=== PATIENT | female | born 1995 | race Caucasian/White ===

== ENCOUNTER 2019-12-30 14:45 | Emergency (ER) | payer OTHER, SELFPAY ==
[2019-12-30 16:49] VITALS: BP 147/86; PULSE 99; RESP 16; TEMP 37.4; O2SAT 100; BMI 17.2
[2019-12-30 23:30] LABS: MANUAL DIFF FLAG NO
[2019-12-30 23:37] LABS: Basophils Percent Auto 0.4 % (0-2); Eosinophils Percent Auto 0.3 % (0-4); Hematocrit 34.1 % (37-47); Hemoglobin 12.5 g/dl (12.0-16.0); Imm Gran Abs Auto 0.03 X10*3/uL (0.00-0.03); Imm Gran Pct Auto 0.4 % (0.0-0.4); Lymphocytes Absolute Auto 1.6 X10*3/uL (1.2-4.9); Lymphocytes Percent Auto 21.2 % (20-40); Mean Corpuscular HGB Conc 36.7 g/dl (31.0-35.0); Mean Corpuscular Hemoglobin 33.4 pg (27.0-33.0); Mean Corpuscular Volume 91.2 fL (80-98); Mean Platelet Volume 10.8 fL (9.4-12.3); Monocytes Percent Auto 13.2 % (2-11); Neutrophils Absolute Auto 4.8 X10*3/uL (2.0-8.3); Neutrophils Percent Auto 64.5 % (45-73); Platelet Count 264 X10*3/uL (160-400); Red Blood Count 3.74 X10*6/uL (4.20-5.50); Red Cell Distribution Width 11.1 % (11.0-16.0); White Blood Count 7.4 X10*3/uL (4.8-10.8)
[2019-12-31] LABS: Alanine Aminotransferase 27 U/L (0-31); Albumin Level 4.9 g/dL (3.5-5.0); Alkaline Phosphatase 44 U/L (39-117); Anion Gap 19 (12-20); Aspartate Amino Transferase 23 U/L (5-31); Bilirubin Direct 0.4 mg/dL (0.0-0.5); Bilirubin Total 0.8 mg/dL (0.0-1.0); Blood Urea Nitrogen 34 mg/dL (9-16); Calcium 9.5 mg/dL (8.4-10.2); Carbon Dioxide 19 mmol/L (22-29); Chloride 99 mmol/L (96-108); Creatinine Clr Calc Pharmacy 86.9; Estimated Glomerular Filt Rate > 60; Glucose Random 75 mg/dL (60-115); Lipase 14 U/L (8-78); Potassium 3.4 mmol/l (3.3-5.1); Sodium 134 mmol/L (135-145); Total Protein 7.5 g/dL (6.5-8.0)
[2019-12-31 01:04] LABS: Glucose Urine UA NEG (NEG); Leukocyte Esterase Urine NEG (NEG); Nitrite Urine NEG (NEG); Specific Gravity - Urine >= 1.030 (1.005-1.025); Urine Blood 2+ (NEG); Urine Ketones >=80 MG/DL (NEG); Urine Protein TRACE MG/DL (NEG-TRACE)
--- NOTE | 2019-12-31 01:10 | ED.NAVMDI ---
HPI - Nausea/Vomiting/Diarrhea General Chief complaint: Nausea/Vomiting/Diarrhea Stated complaint: Vomiting Time Seen by Provider: 12/31/19 01:03 Source: patient Mode of arrival: ambulatory Limitations: no limitations History of Present Illness HPI Narrative: This is a 24-year-old female without significant past medical history who presents with nausea and vomiting since and reports only being able to keep down small portions of food and minimal amount of water. She states that this has never happened before and is not associated with any travel, exposure to toddlers, sick contacts, fevers, chills, diarrhea, urinary pain /burning /frequency, and patient is currently menstruating. She states that the last time that she had this kind of nausea and vomiting was in March when she had a ruptured cyst. Patient was seen at [facility] and provided with antiemetics, but she states her symptoms have not improved. Related Data Previous Rx's Medication Instructions Recorded ondansetron HCl [Zofran] 4 mg PO Q6H #4 tab 12/31/19 Allergies Allergy/AdvReac Type Severity Reaction Status Date / Time Penicillins [PENICILLINS] Allergy Mild RASH Verified 12/31/19 01:24 Review of Systems Review of Systems: Pertinent positives and negatives as stated in HPI 10 point review systems is otherwise negative. [facility] Past Medical History Source: nursing notes reviewed Medical History No known health problems Social History Social History Alcohol intake: current Alcohol intake frequency: holidays/special occasions only Alcohol type: hard liquor Smoking Status: Never smoker Smoked in Last 30 Days: No Use of substances other than those prescribed or required for medical reasons: Yes Substance Use Type: Marijuana Substance Use Frequency: Occasionally Last Used Substance: Days (ago) Advance Directives: No Advance Directives Information Provided: No Physical Exam Vital Signs and I&O and Narrative: Vital Signs and I&O: Vital Signs Temp 98.5 F 12/31/19 01:17 Pulse 97 12/31/19 06:03 Resp 16 12/31/19 06:03 BP 121/69 12/31/19 06:03 Pulse Ox 97 12/31/19 06:03 Intake & Output 12/30/19 12/31/19 12/31/19 18:59 06:59 18:59 Intake Total 1999 Balance 1999 Weight 54.431 kg Intake: Intake, IV Amoun t 1999 0.9 % Sodium C hloride 1,000 ml 1999 @ 999 mls/hr I VCONT .Q1H1M [facility] Rx#:[id number] Body Mass Index 17.2 VITAL SIGNS: Reviewed. GENERAL: Well developed, well nourished, in no acute distress. HEAD: Normocephalic/atraumatic, Posterior oropharynx was without edema, erythema or exudate. EYES: PERRLA, Pupils <>, EOMI intact without pain, no nystagmus/pallor/icterus noted EARS: Ext canals without abnormality, TMs non-bulging and non-erythematous NOSE: Nares patent bilateral OROPHARYNX: no oral lesions noted, posterior pharynx clear and non-erythematous without noted tonsillar enlargement/erythema/exudates NECK: Supple, no adenopathy LUNGS: Normal breath sounds. No adventitious sounds or accessory muscle use. SpO2<> CARDIOVASCULAR: Regular rate and rhythm without noted murmurs, no JVD or lower extremity edema. ABDOMEN: Soft, non-tender, non-distended with bowel sounds. No rigidity. No guarding. No palpable masses or hernias noted MUSCULOSKELETAL: No tenderness, deformities, or effusions noted on gross inspection. EXTREMITIES: No cyanosis, clubbing or edema. SKIN: Inspection of the skin reveals no rashes, ulcerations, jaundice, pallor, or petechiae. NEUROLOGIC: Alert and oriented x 4. Strength and sensation to light touch were grossly intact x 4. Course Course Course Narrative: This is a 24-year-old female with history and clinical presentation consistent with likely gastroenteritis complicated with moderate dehydration. There is no evidence of infection or anemia and patient responded well to IV fluids and antiemetics. Patient was able to tolerate p.o. and was discharged in stable condition. MDM - Nausea/Vomiting/Diarrhea Lab Data Result diagrams: 12/30/19 23:18 12/30/19 23:18 Labs: Lab Results 12/30/19 12/30/19 12/31/19 Range/Units 23:18 23:18 00:53 WBC 7.4 (4.8-10.8) X10*3/uL RBC 3.74 L (4.20-5.50) X10*6/uL Hgb 12.5 (12.0-16.0) g/dl Hct 34.1 L (37-47) % MCV 91.2 (80-98) fL MCH 33.4 H (27.0-33.0) pg MCHC 36.7 H (31.0-35.0) g/dl RDW 11.1 (11.0-16.0) % Plt Count 264 (160-400) X10*3/uL MPV 10.8 (9.4-12.3) fL Immature Gran % (Auto) 0.4 (0.0-0.4) % Neut % (Auto) 64.5 (45-73) % Lymph % (Auto) 21.2 (20-40) % [place] % (Auto) 13.2 H (2-11) % Eos % (Auto) 0.3 (0-4) % Baso % (Auto) 0.4 (0-2) % Neut # (Auto) 4.8 (2.0-8.3) X10*3/uL Lymph # (Auto) 1.6 (1.2-4.9) X10*3/uL [place] # (Auto) 1.0 (0.1-1.2) X10*3/uL Eos # (Auto) 0.0 (0.0-0.4) X10*3/uL Baso # (Auto) 0.0 (0.0-0.2) X10*3/uL Abs Immat Gran (auto) 0.03 (0.00-0.03) X10*3/uL Absolute Nucleated RBC 0.000 (0.0-0.012) X10*3/uL Nucleated RBC % (auto) 0.0 (0.0-0.2) /100WBC Sodium 134 L (135-145) mmol/L Potassium 3.4 (3.3-5.1) mmol/l Chloride 99 (96-108) mmol/L Carbon Dioxide 19 L (22-29) mmol/L Anion Gap 19 (12-20) BUN 34 H (9-16) mg/dL Creatinine 0.85 (0.5-1.4) mg/dL Estim Creat Clear Calc 86.9 Estimated GFR > 60 Random Glucose 75 (60-115) mg/dL Calcium 9.5 (8.4-10.2) mg/dL Total Bilirubin 0.8 (0.0-1.0) mg/dL Direct Bilirubin 0.4 (0.0-0.5) mg/dL AST 23 (5-31) U/L ALT 27 (0-31) U/L Alkaline Phosphatase 44 (39-117) U/L Total Protein 7.5 (6.5-8.0) g/dL Albumin 4.9 (3.5-5.0) g/dL Lipase 14 (8-78) U/L Urine Color Urine Appearance Urine pH (5.0-8.0) Ur Specific [place] (1.005-1.025) Urine Protein (NEG-TRACE) MG/DL Urine Glucose (UA) (NEG) MG/DL Urine Ketones (NEG) MG/DL Urine Blood (NEG) Urine Nitrite (NEG) Ur Leukocyte Esterase (NEG) Urine RBC (0) /HPF Urine WBC (0-4) /HPF Ur Squamous Epith Cells /LPF Urine Bacteria /LPF Urine Mucus /LPF Urine Test NEGATIVE (NEGATIVE) 12/31/19 Range/Units 00:53 WBC (4.8-10.8) X10*3/uL RBC (4.20-5.50) X10*6/uL Hgb (12.0-16.0) g/dl Hct (37-47) % MCV (80-98) fL MCH (27.0-33.0) pg MCHC (31.0-35.0) g/dl RDW (11.0-16.0) % Plt Count (160-400) X10*3/uL MPV (9.4-12.3) fL Immature Gran % (Auto) (0.0-0.4) % Neut % (Auto) (45-73) % Lymph % (Auto) (20-40) % [place] % (Auto) (2-11) % Eos % (Auto) (0-4) % Baso % (Auto) (0-2) % Neut # (Auto) (2.0-8.3) X10*3/uL Lymph # (Auto) (1.2-4.9) X10*3/uL [place] # (Auto) (0.1-1.2) X10*3/uL Eos # (Auto) (0.0-0.4) X10*3/uL Baso # (Auto) (0.0-0.2) X10*3/uL Abs Immat Gran (auto) (0.00-0.03) X10*3/uL Absolute Nucleated RBC (0.0-0.012) X10*3/uL Nucleated RBC % (auto) (0.0-0.2) /100WBC Sodium (135-145) mmol/L Potassium (3.3-5.1) mmol/l Chloride (96-108) mmol/L Carbon Dioxide (22-29) mmol/L Anion Gap (12-20) BUN (9-16) mg/dL Creatinine (0.5-1.4) mg/dL Estim Creat Clear Calc Estimated GFR Random Glucose (60-115) mg/dL Calcium (8.4-10.2) mg/dL Total Bilirubin (0.0-1.0) mg/dL Direct Bilirubin (0.0-0.5) mg/dL AST (5-31) U/L ALT (0-31) U/L Alkaline Phosphatase (39-117) U/L Total Protein (6.5-8.0) g/dL Albumin (3.5-5.0) g/dL Lipase (8-78) U/L Urine Color DARK YELLOW Urine Appearance CLEAR Urine pH 6.0 (5.0-8.0) Ur Specific [place] >= 1.030 H (1.005-1.025) Urine Protein TRACE (NEG-TRACE) MG/DL Urine Glucose (UA) NEG (NEG) MG/DL Urine Ketones >=80 (NEG) MG/DL Urine Blood 2+ H (NEG) Urine Nitrite NEG (NEG) Ur Leukocyte Esterase NEG (NEG) Urine RBC 0-2 (0) /HPF Urine WBC 1-4 (0-4) /HPF Ur Squamous Epith Cells TRACE /LPF Urine Bacteria NONE /LPF Urine Mucus 1+ /LPF Urine Test (NEGATIVE) Discharge Plan Discharge Clinical Impression: Gastroenteritis Patient Disposition: Home, Self-Care Instructions: Dehydration (ED), Gastroenteritis (ED) Additional Instructions: 1. Increase fluid intake, especially water. 2. Avoid extreme temperatures of liquids and for the next 24-48 hours use only a bland diet. 3. please follow-up with your primary care provider today so they can further manage your symptoms as an outpatient should they persist. The patient and/or family acknowledge understanding of results (as applicable), diagnosis, treatment plan, need for follow up, and symptoms that should prompt a return to the emergency room. Prescriptions: New ondansetron HCl [Zofran] 4 mg tablet 4 mg PO Q6H Qty: 4 RF: 0 Interventions: ED Discharge Assessment Last Done: 12/31/19 06:09 Discharge Date/Time: 12/31/19 06:12
[2019-12-31 01:13] LABS: Appearance Urine CLEAR; Color Urine DARK YELLOW
[2019-12-31 01:17] VITALS: BP 130/86; PULSE 76; PULSE 77; RESP 16; TEMP 36.9; O2SAT 98
[2019-12-31 01:33] LABS: Mucus Urine 1+ /LPF; RBC Urine 0-2 /HPF (0); Squamous Epithelial Cell Urine TRACE /LPF
[2019-12-31 01:34] LABS: UPreg QC Valid YES; Urine Pregnancy NEGATIVE (NEGATIVE)
[2019-12-31] MEDS: 0.9 % Sodium Chloride 1,000 ML 999 ML IVCONT ×2 (01:37→03:50)
[2019-12-31] MEDS: ondansetron HCL 4 MG/2 ML VIAL IVPUSH (01:37)
[2019-12-31 02:57] VITALS: BP 145/74; PULSE 79; RESP 16; O2SAT 99
[2019-12-31] MEDS: Lidocaine HCl Viscous 2 % 15 ML SOLUTION 10 ML MUCOUS MEM (03:20)
[2019-12-31] MEDS: Magnesium Hydrox/Alum Hydrox 30 ML ORAL.SUSP PO (03:20)
[2019-12-31] MEDS: Metoclopramide HCl 10 MG/2 ML VIAL IVPUSH (03:50)
[2019-12-31] MEDS: diphenhydrAMINE HCL 50 MG/ML VIAL 25 MG IVPUSH (03:50)
--- NOTE | 2019-12-31 05:29 | PC.NURSE ---
po challenge with water if tolerates d/c per samuel adamson
[2019-12-31 06:03] VITALS: BP 121/69; PULSE 97; RESP 16; O2SAT 97
== END 2019-12-31 06:12 | disposition home or self-care (01) ==
PROVIDERS: Emergency Provider Student in an Organized Health Care Education/Training Program
DX: K52.9 Noninfective gastroenteritis and colitis, unspecified (principal); E86.0 Dehydration; F12.90 Cannabis use, unspecified, uncomplicated
CPT/HCPCS: 36415; 80048; 80076; 81001; 81003; 81025; 83690; 85025; 96361; 96374; 96375; 99285; J1200; J2405; J2765

== ENCOUNTER 2020-04-10 13:07 | Outpatient (REF) | payer OTHER, SELFPAY ==
--- NOTE | 2020-04-10 | XR_ITS ---
EXAMINATION: XR WRIST, RIGHT CLINICAL INFORMATION: Right wrist pain. COMPARISON: None TECHNIQUE: PA, lateral, and oblique views of the right wrist. FINDINGS: The bones and soft tissues are normal. No fracture. Alignment is anatomic with normal joint spaces. No erosions or abnormal soft tissue calcifications. XR/XR wrist RT min 3V IMPRESSION: Normal right wrist.
[2020-04-10 14:16] LABS: MANUAL DIFF FLAG NO
[2020-04-10 14:26] LABS: Basophils Percent Auto 0.5 % (0-2); Eosinophils Absolute Auto 0.1 X10*3/uL (0.0-0.4); Eosinophils Percent Auto 2.1 % (0-4); Hematocrit 35.1 % (37-47); Hemoglobin 11.8 g/dl (12.0-16.0); Imm Gran Abs Auto 0.01 X10*3/uL (0.00-0.03); Imm Gran Pct Auto 0.2 % (0.0-0.4); Lymphocytes Absolute Auto 1.4 X10*3/uL (1.2-4.9); Lymphocytes Percent Auto 32.6 % (20-40); Mean Corpuscular HGB Conc 33.6 g/dl (31.0-35.0); Mean Corpuscular Hemoglobin 32.5 pg (27.0-33.0); Mean Corpuscular Volume 96.7 fL (80-98); Mean Platelet Volume 11.1 fL (9.4-12.3); Monocytes Absolute Auto 0.4 X10*3/uL (0.1-1.2); Monocytes Percent Auto 9.1 % (2-11); Neutrophils Absolute Auto 2.4 X10*3/uL (2.0-8.3); Neutrophils Percent Auto 55.5 % (45-73); Platelet Count 196 X10*3/uL (160-400); Red Blood Count 3.63 X10*6/uL (4.20-5.50); White Blood Count 4.3 X10*3/uL (4.8-10.8)
[2020-04-10 15:00] LABS: Alanine Aminotransferase 14 U/L (0-31); Albumin Level 4.5 g/dL (3.5-5.0); Alkaline Phosphatase 49 U/L (39-117); Anion Gap 10 (12-20); Aspartate Amino Transferase 19 U/L (5-31); Bilirubin Direct 0.2 mg/dL (0.0-0.5); Bilirubin Total 0.3 mg/dL (0.0-1.0); Blood Urea Nitrogen 18 mg/dL (9-16); Calcium 9.7 mg/dL (8.4-10.2); Carbon Dioxide 26 mmol/L (22-29); Chloride 106 mmol/L (96-108); Cholesterol 167 mg/dL; Estimated Glomerular Filt Rate > 60; Glucose Random 86 mg/dL (60-115); HDL Cholesterol 55 mg/dL; LDL Cholesterol Calculated 97 mg/dl; Potassium 4.4 mmol/l (3.3-5.1); Sodium 138 mmol/L (135-145); Total Protein 6.9 g/dL (6.5-8.0); Triglycerides 75 mg/dL
[2020-04-11 21:52] LABS: Rubella IgG Antibody 2.71 Index; Rubeola IgG (Measles) >300.00 AU/mL
[2020-04-13 08:15] LABS: ~HepC Num1 0.15 S/CO (0.00-0.79); ~Hepatitis C Antibody Nonreactive (Nonreactive)
[2020-04-13 08:18] LABS: HBS Num1 68.08 mIU/mL (0-7.99); HIV AB/AG Nonreactive (Nonreactive); HIV Num 1 0.12 S/CO (0.00-0.99); Hepatitis B Surface Antigen Negative (Negative); ~Hepatitis B Surface Antibody REACTIVE (Nonreactive)
[2020-04-13 09:03] LABS: HBc Num1 0.09 S/CO (0.00-0.79); Hepatitis B Core Antibody Nonreactive (Nonreactive)
== END 2020-04-10 13:08 | disposition home or self-care (01) ==
LOC: HO.LAB 13:07
PROVIDERS: PCP Internal Medicine; Visit Provider Internal Medicine
DX: Z00.00 Encounter for general adult medical examination without abnormal findings (principal)
CPT/HCPCS: 36415; 73110; 80048; 80061; 80076; 85025; 86704; 86706; 86735; 86762; 86765; 86787; 86803; 87340; 87389

== ENCOUNTER → 2020-04-30 10:54 | Outpatient (BNVA) | payer OTHER, SELFPAY | PROVIDERS: Visit Provider Orthopaedic Surgery ==

== ENCOUNTER 2020-05-14 09:03 | Outpatient (REF) | payer OTHER, SELFPAY ==
--- NOTE | ~2020-05-14 | US_ITS ---
EXAMINATION: US DIAGNOSTIC ULTRASOUND BREAST, LEFT CLINICAL INFORMATION: 24-year-old with 4-6 months history small palpable area lateral left breast and left axilla. Mild tendinosis. No discharge: No family history breast cancer. No prior breast imaging. COMPARISON: None. TECHNIQUE: Ultrasound left breast and axillary is targeted to the areas of clinical concern. Patient is able to point to the areas of concern at time of imaging. Patient is imaged both supine and upright. Grayscale imaging and color Doppler are performed without and with harmonics. FINDINGS: There is no focal suspicious finding. There is no cystic or solid mass, architectural abnormality, duct ectasia, or edema in the soft tissue planes. There is no lymphadenopathy. Results are discussed with the patient at time of visit. US/US breast LT limited IMPRESSION: Normal study. No ultrasound correlate for patient's areas of palpable concern. No lymphadenopathy. ASSESSMENT: BI-RADS 1: Negative RECOMMENDATION: Patient should be managed based on the clinical impression. If clinically indicated, further evaluation may be considered with surgical consult. Decision to proceed with biopsy should be based on clinical grounds and degree of clinical concern.
== END 2020-05-14 09:04 | disposition home or self-care (01) ==
LOC: HO.MAMMO 09:03
PROVIDERS: Visit Provider Advanced Practice Midwife
DX: N63.21 Unspecified lump in the left breast, upper outer quadrant (principal)
CPT/HCPCS: 76642

== ENCOUNTER 2020-05-19 09:37 | Outpatient (REF) | payer OTHER, SELFPAY | END 2020-05-19 09:38 | disposition home or self-care (01) | LOC: HO.LAB 09:37 | PROVIDERS: PCP Internal Medicine; Visit Provider Obstetrics & Gynecology | DX: R87.612 Low grade squamous intraepithelial lesion on cytologic smear of cervix (LGSIL) (principal) | CPT/HCPCS: 57454; 88305 ==

== ENCOUNTER 2020-05-20 11:05 | Outpatient (REF) | payer OTHER, SELFPAY | END 2020-05-20 11:06 | disposition home or self-care (01) | LOC: HO.US 11:05 | PROVIDERS: Visit Provider Advanced Practice Midwife | DX: Z13.89 Encounter for screening for other disorder (principal) ==

== ENCOUNTER 2020-06-02 11:02 | Outpatient (REF) | payer OTHER, SELFPAY ==
--- NOTE | ~2020-06-02 | US_ITS ---
EXAMINATION: ULTRASOUND PELVIS COMPLETE CLINICAL INFORMATION: Right lower quadrant pain. History of right ovarian cyst. COMPARISON: Ultrasound pelvis 04/06/2019. TECHNIQUE: Transabdominal and transvaginal ultrasound of the pelvis is performed. FINDINGS: On transabdominal ultrasound the uterus is anteverted and anteflexed measuring 6.6 cm in length, 3.2 cm in AP and 4.1 cm in transverse dimension. The endometrial stripe is 0.26 cm. No focal lesion seen. The right ovary measures 4.16 x 2.39 x 2.30 cm and volume 13.70 mL. There is a simple anechoic cyst measuring 2.6 x 1.8 x 1.5 cm. The left ovary measures 2.60 x 2.02 x 2.24 cm and volume 6.16 mL. There is no free fluid in the cul-de-sac. US/US transvaginal IMPRESSION: Simple cyst right ovary. The left ovary and the uterus is unremarkable.
--- NOTE | ~2020-06-02 | US_ITS ---
EXAMINATION: ULTRASOUND PELVIS COMPLETE CLINICAL INFORMATION: Right lower quadrant pain. History of right ovarian cyst. COMPARISON: Ultrasound pelvis 04/06/2019. TECHNIQUE: Transabdominal and transvaginal ultrasound of the pelvis is performed. FINDINGS: On transabdominal ultrasound the uterus is anteverted and anteflexed measuring 6.6 cm in length, 3.2 cm in AP and 4.1 cm in transverse dimension. The endometrial stripe is 0.26 cm. No focal lesion seen. The right ovary measures 4.16 x 2.39 x 2.30 cm and volume 13.70 mL. There is a simple anechoic cyst measuring 2.6 x 1.8 x 1.5 cm. The left ovary measures 2.60 x 2.02 x 2.24 cm and volume 6.16 mL. There is no free fluid in the cul-de-sac. US/US pelvic complete IMPRESSION: Simple cyst right ovary. The left ovary and the uterus is unremarkable.
== END 2020-06-02 11:03 | disposition home or self-care (01) ==
LOC: HO.US 11:02
PROVIDERS: PCP Advanced Practice Midwife; Visit Provider Advanced Practice Midwife
DX: R10.31 Right lower quadrant pain (principal)
CPT/HCPCS: 76830; 76856

== ENCOUNTER 2020-07-20 12:48 | Outpatient (REF) | payer OTHER, SELFPAY ==
[2020-07-20 14:40] LABS: HCG Quantitative 15 mIU/mL
== END 2020-07-20 12:49 | disposition home or self-care (01) ==
LOC: HO.LAB 12:48
PROVIDERS: PCP Internal Medicine; Visit Provider Obstetrics & Gynecology
DX: Z01.818 Encounter for other preprocedural examination (principal); Z98.890 Other specified postprocedural states
CPT/HCPCS: 36415; 84702

== ENCOUNTER 2020-07-23 06:39 | Day surgery (SDC) | payer OTHER, SELFPAY ==
[2020-07-17 20:23] VITALS: BMI 17.7
[2020-07-23 06:54] VITALS: BP 108/78; PULSE 74; RESP 22; TEMP 36.8; O2SAT 99
[2020-07-23 07:01] LABS: UPreg QC Valid YES; Urine Pregnancy NEGATIVE (NEGATIVE)
[2020-07-23] MEDS: Lactated Ringers 1,000 ML 50 ML IV (07:10)
--- NOTE | 2020-07-23 07:27 | HO.ANESPROP2 ---
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 (Acute) Status post elective (Acute) Past Medical History Medical History No known health problems Surgical History Surgical History No history of previous surgery Social History Social History Alcohol intake: current Alcohol intake frequency: holidays/special occasions only Alcohol type: hard liquor Smoking Status: Never smoker Use of substances other than those prescribed or required for medical reasons: No Substance Use Type: Marijuana Advance Directives: No Advance Directives Information Provided: No Advance Directives on File: No Meds Allergies Allergy/AdvReac Type Severity Reaction Status Date / Time Penicillins [PENICILLINS] Allergy Mild RASH Verified 07/20/20 12:58 Home Medications Medication Instructions Recorded Confirmed Last Taken Type drospiren-e.estrad-l.mefol 3 1 tab PO DAILY 05/19/20 07/17/20 Unknown History mg-0.02 mg-0.451 mg(24)/0.451 mg(4)tablet Exam Exam Date and Time: July 23, 2020726 Height,Weight and Vital Signs: Height 5 ft 9 in Weight 54.431 kg Last Vital Signs Temp 98.3 F 07/23/20 06:54 Pulse 74 07/23/20 06:54 Resp 22 H 07/23/20 06:54 BP 108/78 07/23/20 06:54 Pulse Ox 99 07/23/20 06:54 Pertinent Lab Results Pertinent Lab Results: Laboratory Tests 07/23/20 06:50 Urine Test NEGATIVE Airway Mallampati Class: I Neck ROM: Full Heart: RRR Lungs: CTA
--- NOTE | 2020-07-23 07:34 | MHC.SHP ---
Pre-Procedural Eval Section A The patient is an INPATIENT: No Changes since office visit: No Cold of Flu in the past 2 weeks, No New Medical Problems, No Changes in Medication and No Patient answered all questions The History & Physical has been completed within 30 days and I have reviewed it.: Yes Section B Chief Complaint: C1N3 Allergies: Allergies Allergy/AdvReac Type Severity Reaction Status Date / Time Penicillins [PENICILLINS] Allergy Mild RASH Verified 07/20/20 12:58 Plan Diagnosis/Plan: Unchanged I have reviewed the history and physical and performed a pertinent physical examination on my patient. No changes have occurred unless specified.
--- NOTE | 2020-07-23 08:01 | PM.OP ---
Brief Operative Note Date of Service: 03/06/20 Pre-op diagnosis: IAN 3 Post-op diagnosis: same Procedure: LEEP CONE with post CONE ECC Surgeon: Clement Lewis MD Anesthesia: local and other (Paracervical block) Estimated blood loss (mL): 0 Pathology: other (cervical cone, Endocx, Post cone ECC) Condition: stable Disposition: other (Home)
--- NOTE | 2020-07-23 08:02 | W.PM.OPN ---
Operative Note Operative Note Date of Service: 03/06/20 Narrative: Preop diagnosis: IAN 3 Operation: LEEP Cone with post cone ECC Post op diagnosis: same Anesthesia: paracervical block Complications: none Pathology: Cervical cone , endocervix & post cone RCC QBL: minimal Procedure: The patient was put in the dorsal lithotomy position, was prepped and draped in the usual sterile fashion. A sterile speculum was inserted inside the patient vagina. Using Lugol solution the cervix with Dyed with Lugol solution to identifiy the abnormal demarcating line. 10 cc of Marcaine0.5% with epinephrine were given at 2,4 , 8, and 10 o'clock. Using a 20 mm -size loop wire, the cervical cone was excised followed by the posterior cervical lip and endocervix, post cone ECC was done afterwards. Hemostasis was assured using cautery and Monsel solution. All instruments were taken out of the patient's vaginal cavity. the patient tolerated the procedure well and was discharged home with the following instructions: call if temperature is above 100.4, vaginal bleeding, abdominal pain or nausea or vomiting. Follow-up in the office in 2 weeks for postop visit
[2020-07-23 08:05] VITALS: BP 107/53; PULSE 72; RESP 16; TEMP 36.4; O2SAT 97
[2020-07-23 08:10] VITALS: BP 103/57; PULSE 81; RESP 17; O2SAT 100
[2020-07-23 08:15] VITALS: BP 117/65; PULSE 86; RESP 17; O2SAT 100
[2020-07-23 08:25] VITALS: BP 112/63; PULSE 67; RESP 17; O2SAT 100
== END 2020-07-23 08:56 | disposition home or self-care (01) ==
LOC: HO.SSS 06:39
PROVIDERS: Anesthesiology; PCP Internal Medicine; Visit Provider Obstetrics & Gynecology
PROC: 0UBC7ZZ Excision of Cervix, Via Natural or Artificial Opening (ICD-10-PCS; CPT 57522; principal; 2020-07-23 07:30)
DX: D06.9 Carcinoma in situ of cervix, unspecified (principal); F12.90 Cannabis use, unspecified, uncomplicated; Z88.0 Allergy status to penicillin; Z79.899 Other long term (current) drug therapy
CPT/HCPCS: 57522; 81025; 88305; 88307; J1100; J2250; J2405; J3010

== ENCOUNTER 2021-02-10 10:18 | Outpatient (REF) | payer OTHER, SELFPAY | END 2021-02-10 10:19 | disposition home or self-care (01) | LOC: HO.LAB 10:18 | PROVIDERS: PCP Internal Medicine; Visit Provider Obstetrics & Gynecology | DX: D06.9 Carcinoma in situ of cervix, unspecified (principal) | CPT/HCPCS: 57454; 88305 ==

== ENCOUNTER → 2021-02-25 11:50 | Outpatient (BNVA) | payer OTHER, SELFPAY | PROVIDERS: PCP Internal Medicine; Visit Provider Obstetrics & Gynecology | DX: D06.9 Carcinoma in situ of cervix, unspecified (principal) | CPT/HCPCS: 99212 ==

== ENCOUNTER 2022-01-28 07:42 | Emergency (ER) | payer SELFPAY ==
--- NOTE | ~2022-01-28 | US_ITS ---
EXAMINATION: US ABDOMEN LIMITED CLINICAL INFORMATION: Right upper quadrant pain. Evaluate gallbladder.. COMPARISON: None TECHNIQUE: Real-time imaging of the gallbladder. FINDINGS: GALLBLADDER: Normal. The gallbladder is physiologically distended without evidence of stones, sludge, polyps, wall thickening or pericholecystic fluid. COMMON BILE DUCT: Normal in caliber measuring 0.2 cm in diameter. FREE FLUID: None. US/US abdomen limited IMPRESSION: Normal appearance of the gallbladder.
[2022-01-28 07:44] VITALS: BP 152/92; PULSE 85; RESP 18; TEMP 36.9; O2SAT 98
[2022-01-28 08:24] VITALS: BMI 20.5
--- NOTE | 2022-01-28 09:14 | ED_ITS ---
HPI - Nausea/Vomiting/Diarrhea General Chief complaint: Nausea/Vomiting/Diarrhea Stated complaint: vomiting x2 days, not able to eat Time Seen by Provider: 01/28/22 09:13 Source: patient Mode of arrival: ambulatory Limitations: no limitations History of Present Illness HPI Narrative: 26 yo female with no sig PMH here with n/v abdominal pain and flank pain with decreased urinary output since Monday did drink Monday night and was hungover on Monday. No sick contacts, antibiotics. This has never happened before. Does not feel like prior cyst rupture. No known pancreatitis with ETOH in the past MD elicited complaint: nausea, vomiting, abdominal pain and flank pain Onset (ago): day(s) (3) Description of vomiting: food contents, watery and bilious Associated nausea: Yes Associated abdominal pain: Yes Location of pain: diffuse, L flank and R flank Radiation: diffuse Pain consistency: constant Severity: severe Quality: stabbing and constant Exacerbating factors: eating and movement Relieving factors: none Associated symptoms: fever/chills, headaches, loss of appetite, malaise, n ausea/vomiting and decreased urine output Related Data Home Medications Medication Instructions Recorded Confirmed drospiren-meenuestrad-l.mefol 3 1 tab PO DAILY 05/19/20 07/17/20 mg-0.02 mg-0.451 mg(24)/0.451 mg(4)tablet (Luís (28)) Previous Rx's Medication Instructions Recorded ondansetron 4 mg disintegrating 4 mg PO Q8H PRN nausea and 01/28/22 tablet vomiting #20 tabs Allergies Allergy/AdvReac Type Severity Reaction Status Date / Time Penicillins [PENICILLINS] Allergy Mild RASH Verified 07/20/20 12:58 Review of Systems Review of Systems: Constitutional : No Weight loss, pos Fever, pos Chills ENT/Mouth : No sore throat, No Rhinorrhea Eyes: No Swelling, No Redness Cardiovascular : No Chest Pain, No SOB, NoEdema Respiratory : No Cough, No Sputum, No Wheezing Gastrointestinal : Positive Nausea, Positive Vomiting, no Diarrhea, positive abdominal Pain, No Hematochezia, No Melena Genitourinary : No Dysuria, No Urinary Frequency, No Hematuria, No Urgency Musculoskeletal : No joint pain, No Myalgias, No Joint Swelling Skin : No Skin Lesions, No rash Neuro : pos Weakness, No Numbness, No Dizziness, No Headache Psych : No Anxiety/Panic, No Depression Heme/Lymph: No Bruising, No Lymphadenopathy Endocrine : No Polyuria, No Polydipsia All other systems reviewed and are negative. 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 No known health problems Ruptured cyst of ovary Surgical History No history of previous surgery Social History Social History (Updated 01/28/22 @ 09:36 by Leighann Bravo DO) Alcohol intake: current Alcohol intake frequency: holidays/special occasions only Alcohol type: hard liquor Patient Tobacco Use Status: Never used Tobacco Substance Use Type: Marijuana Advance Directives: No Advance Directives Information Provided: No Physical Exam Vital Signs: Vital Signs: Last Vital Signs Temp 98.4 F 01/28/22 12:45 Pulse 82 01/28/22 12:45 Resp 16 01/28/22 12:45 BP 123/84 01/28/22 12:45 Pulse Ox 100 01/28/22 12:45 O2 Del Method 01/28/22 12:45 BMI result Body Mass Index 20.5 Appearance: Alert. Oriented X3. No acute distress. Eyes: Pupils equal, round and reactive to light. ENT: Pharynx dry MM Neck: Normal inspection. Neck supple. CVS: Normal heart rate and rhythm. Pulses normal. Respiratory: No respiratory distress. Breath sounds normal. Abdomen: Soft and moderate diffuse ttp with bilateral flank pain Skin: Skin hot to touch and dry. Normal skin color. Normal skin turgor. Extremities: No lower extremity edema. No calf ttp Neuro: Oriented X 3. No motor deficit. No sensory deficit. Course Course Course Narrative: tried to PO challenge c/o nausea, IM haldol ordered patient can tolerate PO stable for DC at this time, wants to leave and go home at this time MDM - Nausea/Vomiting/Diarrhea MDM Narrative Medical decision making narrative: 26 yo female with no sig PMH here with n/v abdominal pain and flank pain with decreased urinary output since Monday did drink Monday night and was hungover on Monday. At this time will need labs, IVF x 3L, UA, anti-emeticis could be gastritis, viral syndrome, pancreatitis. Dispo per results and findings. Lab Data Result diagrams: 01/28/22 09:55 01/28/22 09:55 Labs: Lab Results 01/28/22 01/28/22 01/28/22 Range/Units 09:29 09:55 09:55 WBC 13.3 H (4.8-10.8) X10*3/uL RBC 4.16 L (4.20-5.50) X10*6/uL Hgb 13.6 (12.0-16.0) g/dl Hct 39.1 (37.0-47.0) % MCV 94.0 (80.0-98.0) fL MCH 32.7 (27.0-33.0) pg MCHC 34.8 (31.0-35.0) g/dl RDW 12.8 (11.0-16.0) % Plt Count 256 (160-400) X10*3/uL MPV 10.9 (9.4-12.3) fL Immature Gran % (Auto) 0.5 H (0.0-0.4) % Neut % (Auto) 78.0 H (45-73) % Lymph % (Auto) 9.8 L (20-40) % [place] % (Auto) 11.5 H (2-11) % Eos % (Auto) 0.0 (0-4) % Baso % (Auto) 0.2 (0-2) % Lymph # (Auto) 1.3 (1.2-4.9) X10*3/uL [place] # (Auto) 1.5 H (0.1-1.2) X10*3/uL Eos # (Auto) 0.0 (0.0-0.4) X10*3/uL Baso # (Auto) 0.0 (0.0-0.2) X10*3/uL Abs Immat Gran (auto) 0.06 H (0.00-0.03) X10*3/uL Absolute Neuts (auto) 10.3 H (2.0-8.3) x10*3/uL Absolute Nucleated RBC 0.000 (0.0-0.012) X10*3/uL Nucleated RBC % (auto) 0.0 (0.0-0.2) /100WBC Smear Tech's Comments VERIFIED Sodium 139 (135-145) mmol/L Potassium 3.7 (3.3-5.1) mmol/L Chloride 101 (96-108) mmol/L Carbon Dioxide 22 (22-29) mmol/L Anion Gap 20 (12-20) BUN 46 H (9-16) mg/dL Creatinine 1.09 (0.5-1.4) mg/dL Estim Creat Clear Calc 66.6 Estimated GFR > 60 POC Glucose 104 (60-115) mg/dL Random Glucose 108 (60-115) mg/dL Lactic Acid (0.5-2.0) mmol/L Calcium 10.2 (8.4-10.2) mg/dL Magnesium 2.8 H (1.6-2.6) mg/dL Total Bilirubin 1.3 H (0.0-1.0) mg/dL Direct Bilirubin 0.5 (0.0-0.5) mg/dL AST 41 H D (5-31) U/L ALT 48 H (0-31) U/L Alkaline Phosphatase 50 (39-117) U/L Total Creatine Kinase (26-140) U/L Total Protein 8.4 H D (6.5-8.0) g/dL Albumin 5.4 H (3.5-5.0) g/dL Lipase 14 (8-78) U/L Beta HCG, Quant < 2 mIU/mL Urine Color Urine Appearance Urine pH (5.0-9.0) Ur Specific [place] (1.005-1.025) Urine Protein (Neg-Trace) mg/dL Urine Glucose (UA) (Negative) mg/dL Urine Ketones (Negative) mg/dL Urine Blood (Negative) Urine Nitrite (Negative) Ur Leukocyte Esterase (Negative) Urine RBC (0-2) /HPF Urine WBC (0-5) /HPF Ur Squamous Epith Cells (0-2) /HPF Other Crystals Urine Bacteria (None Seen) Hyaline Casts (0-2) /LPF Urine Opiates Screen (Not Detect) Urine Fentanyl Screen (Not Detect) Ur Barbiturates Screen (Not Detect) Ur Phencyclidine Scrn (Not Detect) Ur Amphetamines Screen (Not Detect) U Benzodiazepines Scrn (Not Detect) Urine Cocaine Screen (Not Detect) U Marijuana (THC) Screen (Not Detect) Ethyl Alcohol < 10 mg/dL COVID-19 (JANNIE) (Negative) COVID-19 Clin Com Influenza Type A (CELESTE) (Negative) Influenza Type B (CELESTE) (Negative) Influenza A & B Note 01/28/22 01/28/22 01/28/22 Range/Units 09:55 09:55 09:55 WBC (4.8-10.8) X10*3/uL RBC (4.20-5.50) X10*6/uL Hgb (12.0-16.0) g/dl Hct (37.0-47.0) % MCV (80.0-98.0) fL MCH (27.0-33.0) pg MCHC (31.0-35.0) g/dl RDW (11.0-16.0) % Plt Count (160-400) X10*3/uL MPV (9.4-12.3) fL Immature Gran % (Auto) (0.0-0.4) % Neut % (Auto) (45-73) % Lymph % (Auto) (20-40) % [place] % (Auto) (2-11) % Eos % (Auto) (0-4) % Baso % (Auto) (0-2) % Lymph # (Auto) (1.2-4.9) X10*3/uL [place] # (Auto) (0.1-1.2) X10*3/uL Eos # (Auto) (0.0-0.4) X10*3/uL Baso # (Auto) (0.0-0.2) X10*3/uL Abs Immat Gran (auto) (0.00-0.03) X10*3/uL Absolute Neuts (auto) (2.0-8.3) x10*3/uL Absolute Nucleated RBC (0.0-0.012) X10*3/uL Nucleated RBC % (auto) (0.0-0.2) /100WBC Smear Tech's Comments Sodium (135-145) mmol/L Potassium (3.3-5.1) mmol/L Chloride (96-108) mmol/L Carbon Dioxide (22-29) mmol/L Anion Gap (12-20) BUN (9-16) mg/dL Creatinine (0.5-1.4) mg/dL Estim Creat Clear Calc Estimated GFR POC Glucose (60-115) mg/dL Random Glucose (60-115) mg/dL Lactic Acid 0.9 (0.5-2.0) mmol/L Calcium (8.4-10.2) mg/dL Magnesium (1.6-2.6) mg/dL Total Bilirubin (0.0-1.0) mg/dL Direct Bilirubin (0.0-0.5) mg/dL AST (5-31) U/L ALT (0-31) U/L Alkaline Phosphatase (39-117) U/L Total Creatine Kinase 68 (26-140) U/L Total Protein (6.5-8.0) g/dL Albumin (3.5-5.0) g/dL Lipase (8-78) U/L Beta HCG, Quant mIU/mL Urine Color Urine Appearance Urine pH (5.0-9.0) Ur Specific [place] (1.005-1.025) Urine Protein (Neg-Trace) mg/dL Urine Glucose (UA) (Negative) mg/dL Urine Ketones (Negative) mg/dL Urine Blood (Negative) Urine Nitrite (Negative) Ur Leukocyte Esterase (Negative) Urine RBC (0-2) /HPF Urine WBC (0-5) /HPF Ur Squamous Epith Cells (0-2) /HPF Other Crystals Urine Bacteria (None Seen) Hyaline Casts (0-2) /LPF Urine Opiates Screen (Not Detect) Urine Fentanyl Screen (Not Detect) Ur Barbiturates Screen (Not Detect) Ur Phencyclidine Scrn (Not Detect) Ur Amphetamines Screen (Not Detect) U Benzodiazepines Scrn (Not Detect) Urine Cocaine Screen (Not Detect) U Marijuana (THC) Screen (Not Detect) Ethyl Alcohol mg/dL COVID-19 (JANNIE) Negative (Negative) COVID-19 Clin Com See Note Influenza Type A (CELESTE) (Negative) Influenza Type B (CELESTE) (Negative) Influenza A & B Note 01/28/22 01/28/22 01/28/22 Range/Units 09:55 10:17 12:20 WBC (4.8-10.8) X10*3/uL RBC (4.20-5.50) X10*6/uL Hgb (12.0-16.0) g/dl Hct (37.0-47.0) % MCV (80.0-98.0) fL MCH (27.0-33.0) pg MCHC (31.0-35.0) g/dl RDW (11.0-16.0) % Plt Count (160-400) X10*3/uL MPV (9.4-12.3) fL Immature Gran % (Auto) (0.0-0.4) % Neut % (Auto) (45-73) % Lymph % (Auto) (20-40) % [place] % (Auto) (2-11) % Eos % (Auto) (0-4) % Baso % (Auto) (0-2) % Lymph # (Auto) (1.2-4.9) X10*3/uL [place] # (Auto) (0.1-1.2) X10*3/uL Eos # (Auto) (0.0-0.4) X10*3/uL Baso # (Auto) (0.0-0.2) X10*3/uL Abs Immat Gran (auto) (0.00-0.03) X10*3/uL Absolute Neuts (auto) (2.0-8.3) x10*3/uL Absolute Nucleated RBC (0.0-0.012) X10*3/uL Nucleated RBC % (auto) (0.0-0.2) /100WBC Smear Tech's Comments Sodium (135-145) mmol/L Potassium (3.3-5.1) mmol/L Chloride (96-108) mmol/L Carbon Dioxide (22-29) mmol/L Anion Gap (12-20) BUN (9-16) mg/dL Creatinine (0.5-1.4) mg/dL Estim Creat Clear Calc Estimated GFR POC Glucose (60-115) mg/dL Random Glucose (60-115) mg/dL Lactic Acid 0.8 (0.5-2.0) mmol/L Calcium (8.4-10.2) mg/dL Magnesium (1.6-2.6) mg/dL Total Bilirubin (0.0-1.0) mg/dL Direct Bilirubin (0.0-0.5) mg/dL AST (5-31) U/L ALT (0-31) U/L Alkaline Phosphatase (39-117) U/L Total Creatine Kinase (26-140) U/L Total Protein (6.5-8.0) g/dL Albumin (3.5-5.0) g/dL Lipase (8-78) U/L Beta HCG, Quant mIU/mL Urine Color Yellow Urine Appearance Cloudy Urine pH 5.5 (5.0-9.0) Ur Specific [place] >= 1.030 H (1.005-1.025) Urine Protein 100 (2+) H (Neg-Trace) mg/dL Urine Glucose (UA) Negative (Negative) mg/dL Urine Ketones 40 (Negative) mg/dL Urine Blood Moderate (2+) H (Negative) Urine Nitrite Negative (Negative) Ur Leukocyte Esterase Negative (Negative) Urine RBC 3-5 H (0-2) /HPF Urine WBC 0-5 (0-5) /HPF Ur Squamous Epith Cells 6-10 (0-2) /HPF Other Crystals Present Urine Bacteria Trace (None Seen) Hyaline Casts 3-5 (0-2) /LPF Urine Opiates Screen (Not Detect) Urine Fentanyl Screen (Not Detect) Ur Barbiturates Screen (Not Detect) Ur Phencyclidine Scrn (Not Detect) Ur Amphetamines Screen (Not Detect) U Benzodiazepines Scrn (Not Detect) Urine Cocaine Screen (Not Detect) U Marijuana (THC) Screen (Not Detect) Ethyl Alcohol mg/dL COVID-19 (JANNIE) (Negative) COVID-19 Clin Com Influenza Type A (CELESTE) Negative (Negative) Influenza Type B (CELESTE) Negative (Negative) Influenza A & B Note See Note 01/28/22 01/28/22 Range/Units 12:20 12:42 WBC (4.8-10.8) X10*3/uL RBC (4.20-5.50) X10*6/uL Hgb (12.0-16.0) g/dl Hct (37.0-47.0) % MCV (80.0-98.0) fL MCH (27.0-33.0) pg MCHC (31.0-35.0) g/dl RDW (11.0-16.0) % Plt Count (160-400) X10*3/uL MPV (9.4-12.3) fL Immature Gran % (Auto) (0.0-0.4) % Neut % (Auto) (45-73) % Lymph % (Auto) (20-40) % [place] % (Auto) (2-11) % Eos % (Auto) (0-4) % Baso % (Auto) (0-2) % Lymph # (Auto) (1.2-4.9) X10*3/uL [place] # (Auto) (0.1-1.2) X10*3/uL Eos # (Auto) (0.0-0.4) X10*3/uL Baso # (Auto) (0.0-0.2) X10*3/uL Abs Immat Gran (auto) (0.00-0.03) X10*3/uL Absolute Neuts (auto) (2.0-8.3) x10*3/uL Absolute Nucleated RBC (0.0-0.012) X10*3/uL Nucleated RBC % (auto) (0.0-0.2) /100WBC Smear Tech's Comments Sodium (135-145) mmol/L Potassium (3.3-5.1) mmol/L Chloride (96-108) mmol/L Carbon Dioxide (22-29) mmol/L Anion Gap (12-20) BUN (9-16) mg/dL Creatinine (0.5-1.4) mg/dL Estim Creat Clear Calc Estimated GFR POC Glucose 121 H (60-115) mg/dL Random Glucose (60-115) mg/dL Lactic Acid (0.5-2.0) mmol/L Calcium (8.4-10.2) mg/dL Magnesium (1.6-2.6) mg/dL Total Bilirubin (0.0-1.0) mg/dL Direct Bilirubin (0.0-0.5) mg/dL AST (5-31) U/L ALT (0-31) U/L Alkaline Phosphatase (39-117) U/L Total Creatine Kinase (26-140) U/L Total Protein (6.5-8.0) g/dL Albumin (3.5-5.0) g/dL Lipase (8-78) U/L Beta HCG, Quant mIU/mL Urine Color Urine Appearance Urine pH (5.0-9.0) Ur Specific [place] (1.005-1.025) Urine Protein (Neg-Trace) mg/dL Urine Glucose (UA) (Negative) mg/dL Urine Ketones (Negative) mg/dL Urine Blood (Negative) Urine Nitrite (Negative) Ur Leukocyte Esterase (Negative) Urine RBC (0-2) /HPF Urine WBC (0-5) /HPF Ur Squamous Epith Cells (0-2) /HPF Other Crystals Urine Bacteria (None Seen) Hyaline Casts (0-2) /LPF Urine Opiates Screen Not Detected (Not Detect) Urine Fentanyl Screen Not Detected (Not Detect) Ur Barbiturates Screen Not Detected (Not Detect) Ur Phencyclidine Scrn Not Detected (Not Detect) Ur Amphetamines Screen Not Detected (Not Detect) U Benzodiazepines Scrn Not Detected (Not Detect) Urine Cocaine Screen Not Detected (Not Detect) U Marijuana (THC) Screen POSITIVE H (Not Detect) Ethyl Alcohol mg/dL COVID-19 (JANNIE) (Negative) COVID-19 Clin Com Influenza Type A (CELESTE) (Negative) Influenza Type B (CELESTE) (Negative) Influenza A & B Note Discharge Plan Discharge Clinical Impression: Acute dehydration Vomiting Qualifiers: Vomiting type: unspecified Nausea presence: with nausea Qualified Code(s): R11.2 - Nausea with vomiting, unspecified Patient Disposition: Home, Self-Care Instructions: Dehydration (ED), Acute Nausea and Vomiting (ED) Additional Instructions: return to ED for any worsening symptoms or concerns your labs show you were dehydrated mild bump in liver function tests likely associated with dehydration please return to the ED if you continue to vomit or have pain Prescriptions: New ondansetron 4 mg tablet,disintegrating 4 mg PO Q8H PRN (Reason: nausea and vomiting) Qty: 20 0RF No Action drospirenone-e.estradiol-lm.FA [Beyaz] 3-0.02-0.451 mg (24) (4) tablet 1 tab PO DAILY Stand Alone Forms: Work/School Release
[2022-01-28 09:33] LABS: Glucose, Whole Blood 104 mg/dL (60-115)
[2022-01-28] MEDS: 0.9 % Sodium Chloride 1,000 ML 999 ML IVCONT (10:01)
[2022-01-28] MEDS: 0.9 % Sodium Chloride 1,000 ML 999 ML IV (10:02)
[2022-01-28] MEDS: Famotidine/PF 20 MG/2 ML VIAL IVPUSH (10:02)
[2022-01-28] MEDS: diphenhydrAMINE HCL 50 MG/ML VIAL 25 MG IVPUSH (10:02)
[2022-01-28] MEDS: Metoclopramide HCl 10 MG/2 ML VIAL IVPUSH (10:02)
[2022-01-28 10:16] LABS: Basophils Percent Auto 0.2 % (0-2); Hematocrit 39.1 % (37.0-47.0); Hemoglobin 13.6 g/dl (12.0-16.0); Imm Gran Abs Auto 0.06 X10*3/uL (0.00-0.03); Imm Gran Pct Auto 0.5 % (0.0-0.4); Lymphocytes Absolute Auto 1.3 X10*3/uL (1.2-4.9); Lymphocytes Percent Auto 9.8 % (20-40); MANUAL DIFF FLAG SCAN; Mean Corpuscular HGB Conc 34.8 g/dl (31.0-35.0); Mean Corpuscular Hemoglobin 32.7 pg (27.0-33.0); Mean Platelet Volume 10.9 fL (9.4-12.3); Monocytes Absolute Auto 1.5 X10*3/uL (0.1-1.2); Monocytes Percent Auto 11.5 % (2-11); Neutrophils Absolute Auto 10.3 x10*3/uL (2.0-8.3); Platelet Count 256 X10*3/uL (160-400); Red Blood Count 4.16 X10*6/uL (4.20-5.50); Red Cell Distribution Width 12.8 % (11.0-16.0); SCAN SMEAR FLAG 1; White Blood Count 13.3 X10*3/uL (4.8-10.8)
[2022-01-28 10:25] LABS: Lactic Acid 0.9 mmol/L (0.5-2.0)
[2022-01-28 10:33] LABS: Alanine Aminotransferase 48 U/L (0-31); Albumin Level 5.4 g/dL (3.5-5.0); Alkaline Phosphatase 50 U/L (39-117); Anion Gap 20 (12-20); Aspartate Amino Transferase 41 U/L (5-31); Bilirubin Direct 0.5 mg/dL (0.0-0.5); Bilirubin Total 1.3 mg/dL (0.0-1.0); Blood Urea Nitrogen 46 mg/dL (9-16); COVID-19 Test Negative (Negative); Calcium 10.2 mg/dL (8.4-10.2); Carbon Dioxide 22 mmol/L (22-29); Chloride 101 mmol/L (96-108); Creatinine Clr Calc Pharmacy 66.6; Estimated Glomerular Filt Rate > 60; Ethanol < 10 mg/dL; Glucose Random 108 mg/dL (60-115); IDNOW Serial# 55D5AD1C; Lipase 14 U/L (8-78); Magnesium 2.8 mg/dL (1.6-2.6); Potassium 3.7 mmol/L (3.3-5.1); Sodium 139 mmol/L (135-145); Total Protein 8.4 g/dL (6.5-8.0)
[2022-01-28 10:35] LABS: Influenza A Negative (Negative); Influenza B2 Negative (Negative)
[2022-01-28 10:39] LABS: HCG Quantitative < 2 mIU/mL
[2022-01-28 10:41] LABS: Lactic Acid 0.8 mmol/L (0.5-2.0)
[2022-01-28 10:47] LABS: SLIDE REVIEW VERIFIED
--- NOTE | 2022-01-28 12:26 | PC.NURSE ---
pt with no vomiting at this time, attempting PO challenge
[2022-01-28 12:27] LABS: Appearance Urine Cloudy; Color Urine Yellow; Glucose Urine UA Negative (Negative); Leukocyte Esterase Urine Negative (Negative); Nitrite Urine Negative (Negative); PH 5.5 (5.0-9.0); Specific Gravity - Urine >= 1.030 (1.005-1.025); UMIC TRIGGER UACC YES; Urine Blood Moderate (2+) (Negative); Urine Ketones 40 mg/dL (Negative); Urine Protein 100 (2+) mg/dL (Neg-Trace)
[2022-01-28 12:34] LABS: Bacteria Urine Trace (None Seen); Other Crystals Urine Present; WBC Urine 0-5 /HPF (0-5)
[2022-01-28 12:36] LABS: Amphetamine Screen Urine Not Detected (Not Detect); Barbiturates, Urine Not Detected (Not Detect); Benzodiazepines Screen Urine Not Detected (Not Detect); Cannabinoid Screen Urine POSITIVE (Not Detect); Cocaine Screen Urine Not Detected (Not Detect); Fentanyl, urine Not Detected (Not Detect); Opiate Screen Urine Not Detected (Not Detect); Phencyclidine Screen Urine Not Detected (Not Detect)
[2022-01-28 12:45] VITALS: BP 123/84; PULSE 82; RESP 16; TEMP 36.9; O2SAT 100
[2022-01-28 13:24] LABS: Glucose, Whole Blood 121 mg/dL (60-115)
[2022-01-28] MEDS: Haloperidol Lactate 5 MG/ML VIAL IM (13:32)
== END 2022-01-28 14:55 | disposition home or self-care (01) ==
PROVIDERS: Emergency Provider Emergency Medicine
DX: E86.0 Dehydration (principal); R11.2 Nausea with vomiting, unspecified; R51.9 Headache, unspecified; R10.9 Unspecified abdominal pain; R50.9 Fever, unspecified; Z20.822 Contact with and (suspected) exposure to COVID-19; Z79.899 Other long term (current) drug therapy
CPT/HCPCS: 36415; 76705; 80048; 80076; 80307; 81001; 82077; 82550; 82947; 83605; 83690; 83735; 84702; 85025; 87040; 87147; 87205; 87502; 87635; 96361; 96372; 96374; 96375; 99284; J1200; J2765

== ENCOUNTER 2022-06-15 23:32 | Emergency (ER) | payer OTHER, SELFPAY ==
[2022-06-16 00:23] VITALS: BP 113/71; PULSE 81; RESP 18; TEMP 36.8; O2SAT 97; BMI 17.2
[2022-06-16 00:42] LABS: MANUAL DIFF FLAG NO
[2022-06-16 00:43] LABS: Basophils Percent Auto 0.3 % (0-2); Hematocrit 35.4 % (37.0-47.0); Hemoglobin 12.4 g/dl (12.0-16.0); Imm Gran Abs Auto 0.02 X10*3/uL (0.00-0.03); Imm Gran Pct Auto 0.2 % (0.0-0.4); Lymphocytes Percent Auto 9.9 % (20-40); Mean Corpuscular Hemoglobin 32.5 pg (27.0-33.0); Mean Corpuscular Volume 92.7 fL (80.0-98.0); Mean Platelet Volume 10.5 fL (9.4-12.3); Monocytes Percent Auto 10.5 % (2-11); Neutrophils Absolute Auto 7.6 x10*3/uL (2.0-8.3); Neutrophils Percent Auto 79.1 % (45-73); Platelet Count 194 X10*3/uL (160-400); Red Blood Count 3.82 X10*6/uL (4.20-5.50); Red Cell Distribution Width 12.7 % (11.0-16.0); White Blood Count 9.6 X10*3/uL (4.8-10.8)
[2022-06-16 00:59] LABS: Alanine Aminotransferase 29 U/L (0-31); Alkaline Phosphatase 49 U/L (39-117); Anion Gap 18 (12-20); Aspartate Amino Transferase 28 U/L (5-31); Blood Urea Nitrogen 31 mg/dL (9-16); Calcium 9.7 mg/dL (8.4-10.2); Carbon Dioxide 21 mmol/L (22-29); Chloride 106 mmol/L (96-108); Creatinine Clr Calc Pharmacy 75.6; Estimated Glomerular Filt Rate > 60; Glucose Random 108 mg/dL (60-115); Sodium 141 mmol/L (135-145); Total Protein 7.5 g/dL (6.5-8.0)
[2022-06-16 02:05] VITALS: BP 110/58; PULSE 69; RESP 16; TEMP 36.9; O2SAT 98
--- NOTE | 2022-06-16 02:33 | ED.NAVMDI ---
HPI - Nausea/Vomiting/Diarrhea General Chief complaint: Nausea/Vomiting/Diarrhea Stated complaint: Vomiting, diarrhea Time Seen by Provider: 06/16/22 02:28 Source: patient Mode of arrival: ambulatory Limitations: no limitations History of Present Illness HPI Narrative: Patient comes to the emergency room complaining of almost 36 hours of nausea vomiting and diarrhea. Mild abdominal cramping. Patient states that she decided to come to the emergency room because she is unable to keep anything down. Any time that she drinks something, she vomits immediately. Related Data Home Medications Medication Instructions Recorded Confirmed jadamefol 3 1 tab PO DAILY 05/19/20 07/17/20 mg-0.02 mg-0.451 mg(24)/0.451 mg(4)tablet (Luís (28)) Previous Rx's Medication Instructions Recorded ondansetron 4 mg disintegrating 4 mg PO Q8H PRN nausea and 01/28/22 tablet vomiting #20 tabs loperamide 2 mg capsule 2 mg PO Q4H PRN loose stool #14 06/16/22 caps ondansetron 4 mg disintegrating 4 mg PO Q6H PRN nausea and 06/16/22 tablet vomiting #14 tabs Allergies Allergy/AdvReac Type Severity Reaction Status Date / Time Penicillins [PENICILLINS] Allergy Mild RASH Verified 06/16/22 00:22 Review of Systems Review of Systems: Constitutional : No Weight loss, No Fever, No Chills, No Night Sweats, No Fatigue, No Malaise ENT/Mouth : No Hearing loss, No Ear Pain, No Nasal Congestion, No Sinus Pain, No Hoarseness, No sore throat, No Rhinorrhea, No Swallowing Difficulty Eyes: No Eye Pain, No Swelling, No Redness, No Foreign Body, No Discharge, No Vision Changes Cardiovascular : No Chest Pain, No SOB, No Dyspnea on Exertion, No Orthopnea, No Edema, No Palpitations Respiratory : No Cough, No Sputum, No Wheezing, No Smoke Exposure, No Dyspnea Gastrointestinal : Complaining of nausea vomiting and diarrhea,, No Constipation, No abdominal Pain, No Hematochezia, No Melena Genitourinary : no irregular bleeding, No Dysuria, No Urinary Frequency, No Hematuria, No Urinary Incontinence, No Urgency, No Flank Pain, No Urinary Flow Changes, No Hesitancy Musculoskeletal : No joint pain, No Myalgias, No Joint Swelling Skin : No Skin Lesions, No rash Neuro : No Weakness, No Numbness, No Paresthesias, No Loss of Consciousness, No Dizziness, No Headache Psych : No Anxiety/Panic, No Depression, No SI/HI/AH/VH, No Social Issues, Heme/Lymph: No Bruising, No Bleeding,No Lymphadenopathy Endocrine : No Polyuria, No Polydipsia, No Temperature Intolerance [facility] Past Medical History Medical History 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 No known health problems Ruptured cyst of ovary Surgical History No history of previous surgery Social History Social History (Updated 01/28/22 @ 09:36 by Leighann Bravo DO) Alcohol intake: current Alcohol intake frequency: holidays/special occasions only Alcohol type: hard liquor Patient Tobacco Use Status: Never used Tobacco Substance Use Type: Marijuana Advance Directives: No Physical Exam Vital Signs: Vital Signs: Last Vital Signs Temp 98.5 F 06/16/22 02:05 Pulse 69 06/16/22 02:05 Resp 16 06/16/22 02:05 BP 110/58 L 06/16/22 02:05 Pulse Ox 98 06/16/22 02:05 O2 Del Method 06/16/22 02:05 BMI result Body Mass Index 17.2 Const: Other: Appearance: Alert. Oriented X3. No acute distress. Eyes: Pupils equal, round and reactive to light. ENT: Pharynx normal. Neck: Normal inspection. Neck supple. No lymph nodes noted. No crepitus CVS: Normal heart rate and rhythm. Pulses normal. Normal S1 and S2 Respiratory: No respiratory distress. Breath sounds normal. No Wheezing. No rales Abdomen: Soft and nontender. No rigidity. No distention. Skin: Skin warm and dry. Normal skin color. Normal skin turgor. Extremities: No lower extremity edema. No Lacerations. No Rash Neuro: Oriented X 3. No motor deficit. No sensory deficit. Moving all extremities. No slurred speech. CN 2 through 12 grossly intact Psych: calm, cooperative, normal affect Course Course Course Narrative: -patient's abdominal exam is benign, no pain or tenderness. -patient receiving IV fluids, Zofran and loperamide. Medications Administered Discontinued Medications Generic Name Dose Route Start Last Admin Trade Name Haiq PRN Reason Stop Dose Admin Sodium Chloride 1,000 mls @ 999 mls/hr 06/16/22 02:32 06/16/22 02:46 Ns IVCONT 06/16/22 03:32 999 mls/hr .Q1H1M ONE Administration Loperamide HCl 4 mg 06/16/22 02:32 06/16/22 02:45 Loperamide Hcl 2 Mg Capsule PO 06/16/22 02:33 4 mg ONCE ONE Administration Ondansetron HCl 4 mg 06/16/22 02:32 06/16/22 02:45 Ondansetron Hcl 4 Mg/2 Ml Vial IVPUSH 06/16/22 02:33 4 mg ONCE ONE Administration Medical Decision Making Medical Decision Making [facility] Narrative: -patient's white blood cell count within normal limits, patient mildly dehydrated, LFTs normal, lipase normal -patient was p.o. challenged. Patient did not vomit. Differential Diagnosis Differential Diagnoses: The differential diagnosis associated with the presentation includes (Gastroenteritis, colitis, viral syndrome) Lab Data [facility] Lab Attestation statement: I reviewed the patient's lab results. 06/16/22 00:37 06/16/22 00:37 Labs: Lab Results 06/16/22 06/16/22 06/16/22 Range/Units 00:37 00:37 02:51 WBC 9.6 (4.8-10.8) X10*3/uL RBC 3.82 L (4.20-5.50) X10*6/uL Hgb 12.4 (12.0-16.0) g/dl Hct 35.4 L (37.0-47.0) % MCV 92.7 (80.0-98.0) fL MCH 32.5 (27.0-33.0) pg MCHC 35.0 (31.0-35.0) g/dl RDW 12.7 (11.0-16.0) % Plt Count 194 (160-400) X10*3/uL MPV 10.5 (9.4-12.3) fL Immature Gran % (Auto) 0.2 (0.0-0.4) % Neut % (Auto) 79.1 H (45-73) % Lymph % (Auto) 9.9 L (20-40) % [place] % (Auto) 10.5 (2-11) % Eos % (Auto) 0.0 (0-4) % Baso % (Auto) 0.3 (0-2) % Lymph # (Auto) 1.0 L (1.2-4.9) X10*3/uL [place] # (Auto) 1.0 (0.1-1.2) X10*3/uL Eos # (Auto) 0.0 (0.0-0.4) X10*3/uL Baso # (Auto) 0.0 (0.0-0.2) X10*3/uL Abs Immat Gran (auto) 0.02 (0.00-0.03) X10*3/uL Absolute Neuts (auto) 7.6 (2.0-8.3) x10*3/uL Absolute Nucleated RBC 0.000 (0.0-0.012) X10*3/uL Nucleated RBC % (auto) 0.0 (0.0-0.2) /100WBC Sodium 141 (135-145) mmol/L Potassium 4.0 (3.3-5.1) mmol/L Chloride 106 (96-108) mmol/L Carbon Dioxide 21 L (22-29) mmol/L Anion Gap 18 (12-20) BUN 31 H (9-16) mg/dL Creatinine 0.96 (0.5-1.4) mg/dL Estim Creat Clear Calc 75.6 Estimated GFR > 60 Random Glucose 108 (60-115) mg/dL Calcium 9.7 (8.4-10.2) mg/dL Total Bilirubin 1.0 (0.0-1.0) mg/dL AST 28 (5-31) U/L ALT 29 (0-31) U/L Alkaline Phosphatase 49 (39-117) U/L Total Protein 7.5 (6.5-8.0) g/dL Albumin 5.0 (3.5-5.0) g/dL Lipase 9 (8-78) U/L Beta HCG, Quant < 2 mIU/mL Urine Color Cancelled Urine Appearance Cancelled Urine pH Cancelled Ur Specific [place] Cancelled Urine Protein Cancelled Urine Glucose (UA) Cancelled Urine Ketones Cancelled Urine Blood Cancelled Urine Nitrite Cancelled Ur Leukocyte Esterase Cancelled Urine RBC Cancelled Urine WBC Cancelled Urine WBC Clumps Cancelled Ur Squamous Epith Cells Cancelled Ur Transition Epith Cell Cancelled Ur Renal Epithelial Cell Cancelled Calcium Oxalate Crystal Cancelled Leucine Crystals Cancelled Cystine Crystals Cancelled Tyrosine Crystals Cancelled Other Crystals Cancelled Urine Bacteria Cancelled Urine Parasites Cancelled Bilirubin Casts Cancelled Epithelial Casts Cancelled Fatty Casts Cancelled Hyaline Casts Cancelled Granular Casts Cancelled Waxy Casts Cancelled Broad Casts Cancelled RBC Casts Cancelled WBC Casts Cancelled Other Casts Cancelled Urine Trichomonas Cancelled Urine Yeast Cancelled 06/16/22 Range/Units 02:51 WBC (4.8-10.8) X10*3/uL RBC (4.20-5.50) X10*6/uL Hgb (12.0-16.0) g/dl Hct (37.0-47.0) % MCV (80.0-98.0) fL MCH (27.0-33.0) pg MCHC (31.0-35.0) g/dl RDW (11.0-16.0) % Plt Count (160-400) X10*3/uL MPV (9.4-12.3) fL Immature Gran % (Auto) (0.0-0.4) % Neut % (Auto) (45-73) % Lymph % (Auto) (20-40) % [place] % (Auto) (2-11) % Eos % (Auto) (0-4) % Baso % (Auto) (0-2) % Lymph # (Auto) (1.2-4.9) X10*3/uL [place] # (Auto) (0.1-1.2) X10*3/uL Eos # (Auto) (0.0-0.4) X10*3/uL Baso # (Auto) (0.0-0.2) X10*3/uL Abs Immat Gran (auto) (0.00-0.03) X10*3/uL Absolute Neuts (auto) (2.0-8.3) x10*3/uL Absolute Nucleated RBC (0.0-0.012) X10*3/uL Nucleated RBC % (auto) (0.0-0.2) /100WBC Sodium (135-145) mmol/L Potassium (3.3-5.1) mmol/L Chloride (96-108) mmol/L Carbon Dioxide (22-29) mmol/L Anion Gap (12-20) BUN (9-16) mg/dL Creatinine (0.5-1.4) mg/dL Estim Creat Clear Calc Estimated GFR Random Glucose (60-115) mg/dL Calcium (8.4-10.2) mg/dL Total Bilirubin (0.0-1.0) mg/dL AST (5-31) U/L ALT (0-31) U/L Alkaline Phosphatase (39-117) U/L Total Protein (6.5-8.0) g/dL Albumin (3.5-5.0) g/dL Lipase (8-78) U/L Beta HCG, Quant mIU/mL Urine Color Yellow Urine Appearance Clear Urine pH 5.5 Ur Specific [place] >= 1.030 H Urine Protein 30 (1+) H Urine Glucose (UA) Negative Urine Ketones 15 Urine Blood Negative Urine Nitrite Negative Ur Leukocyte Esterase Negative Urine RBC 3-5 H Urine WBC 0-5 Urine WBC Clumps Ur Squamous Epith Cells 3-5 Ur Transition Epith Cell Ur Renal Epithelial Cell Calcium Oxalate Crystal Leucine Crystals Cystine Crystals Tyrosine Crystals Other Crystals Urine Bacteria Trace Urine Parasites Bilirubin Casts Epithelial Casts Fatty Casts Hyaline Casts 0-2 Granular Casts Waxy Casts Broad Casts RBC Casts WBC Casts Other Casts Urine Trichomonas Urine Yeast Discharge Plan Discharge Clinical Impression: Nausea vomiting and diarrhea Patient Disposition: Home, Self-Care Instructions: Acute Nausea and Vomiting (ED) Additional Instructions: Please follow-up with your primary care physician tomorrow. If you have any worsening or new symptoms, please return to the emergency room or call 911 Prescriptions: New ondansetron 4 mg tablet,disintegrating 4 mg PO Q6H PRN (Reason: nausea and vomiting) Qty: 14 0RF loperamide 2 mg capsule 2 mg PO Q4H PRN (Reason: loose stool) Qty: 14 0RF Rx Instructions: administer after each loose stool until symptoms controlled; do not exceed 8 mg per 24 hrs No Action ondansetron 4 mg tablet,disintegrating 4 mg PO Q8H PRN (Reason: nausea and vomiting) Qty: 20 0RF drospirenone-e.estradiol-lm.FA [Beyaz] 3-0.02-0.451 mg (24) (4) tablet 1 tab PO DAILY Stand Alone Forms: Work/School Release
[2022-06-16] MEDS: ondansetron HCL 4 MG/2 ML VIAL IVPUSH (02:45)
[2022-06-16] MEDS: Loperamide HCl 2 MG CAPSULE 4 MG PO (02:45)
[2022-06-16] MEDS: 0.9 % Sodium Chloride 1,000 ML 999 ML IVCONT (02:46)
--- NOTE | 2022-06-16 03:00 | PC.NURSE ---
Pt aox3 resting at the bedside in no apparent distress. Pt reports abd pain, 5/10, with nausea and diarrhea. IV line established with 20G in the L FA. Pt medicated as ordered. Tolerated well. Will continue to monitor.
[2022-06-16 03:01] LABS: HCG Quantitative < 2 mIU/mL
[2022-06-16 03:02] LABS: Lipase 9 U/L (8-78)
[2022-06-16 03:03] LABS: Appearance Urine Clear; Color Urine Yellow; Glucose Urine UA Negative (Negative); Leukocyte Esterase Urine Negative (Negative); Nitrite Urine Negative (Negative); PH 5.5 (5.0-9.0); Specific Gravity - Urine >= 1.030 (1.005-1.025); UMIC TRIGGER UACC YES; Urine Blood Negative (Negative); Urine Ketones 15 mg/dL (Negative); Urine Protein 30 (1+) mg/dL (Neg-Trace)
[2022-06-16 03:12] LABS: Bacteria Urine Trace (None Seen); Hyaline Casts Urine 0-2 /LPF (0-2); WBC Urine 0-5 /HPF (0-5)
[2022-06-16] MEDS: Famotidine/PF 20 MG/2 ML VIAL IVPUSH (03:44)
[2022-06-16] MEDS: Prochlorperazine Edisylate 10 MG/2 ML VIAL IVPUSH (03:44)
== END 2022-06-16 03:45 | disposition home or self-care (01) ==
PROVIDERS: Emergency Provider Emergency Medicine; PCP Internal Medicine
DX: R11.2 Nausea with vomiting, unspecified (principal); R19.7 Diarrhea, unspecified; F12.90 Cannabis use, unspecified, uncomplicated
CPT/HCPCS: 36415; 80053; 81001; 81003; 83690; 84702; 85025; 96361; 96374; 96375; 99284; J2405

== ENCOUNTER 2023-01-02 17:21 | Emergency (ER) | payer OTHER, SELFPAY ==
[2023-01-02 18:20] VITALS: BP 130/86; PULSE 96; RESP 16; TEMP 36.8; O2SAT 95; BMI 16.1
--- NOTE | 2023-01-02 18:21 | ED_ITS ---
HPI - General Adult General Chief complaint: Nausea/Vomiting/Diarrhea Stated complaint: vomiting and diharea since sat morning/dehydrated Time Seen by Provider: 01/02/23 21:08 Source: patient and family Mode of arrival: ambulatory Limitations: no limitations History of Present Illness HPI narrative: 27-year-old female came in for evaluation of nausea, vomiting, diarrhea for 2 days after eating tacos at work, diarrhea improved last bowel movement was 2 days ago and a but nausea and vomiting persist for the past 2 days, patient is unable to keep anything down, no other sick contact, no exposure to a sick contact, no recent travel, no recent use, patient also admitted to smoking marijuana on a daily baby similar symptoms due to smoking. Patient is complaining of epigastric pain that is been constant, unable to keep fluids down. No fever, no chills, no lower abdominal pain in particular right lower abdominal. Related Data Home Medications Medication Instructions Recorded Confirmed drospiren-e.estrad-l.mefol 3 1 tab PO DAILY 05/19/20 07/17/20 mg-0.02 mg-0.451 mg(24)/0.451 mg(4)tablet (Luís (28)) Previous Rx's Medication Instructions Recorded ondansetron 4 mg disintegrating 4 mg PO Q8H PRN nausea and 01/28/22 tablet vomiting #20 tabs loperamide 2 mg capsule 2 mg PO Q4H PRN loose stool #14 06/16/22 caps ondansetron 4 mg disintegrating 4 mg PO Q6H PRN nausea and 06/16/22 tablet vomiting #14 tabs omeprazole 20 mg capsule,delayed 20 mg PO DAILY #14 caps 01/02/23 release ondansetron 4 mg disintegrating 4 mg PO Q6H PRN nausea and 01/02/23 tablet vomiting #7 tabs Allergies Allergy/AdvReac Type Severity Reaction Status Date / Time Penicillins [PENICILLINS] Allergy Mild RASH Verified 01/02/23 18:24 Review of Systems 2 Review of Systems: All other systems are reviewed and are negative Constitutional: Reports as per HPI and Reports no additional constitutional complaints Eyes: Reports as per HPI and Reports no additional eye complaints Reports system reviewed and no additional complaints, except as documented Cardiovascular: Reports as per HPI and Reports no additional cardiovascular complaints Respiratory: Reports as per HPI and Reports no additional respiratory complaints Gastrointestinal: Reports as per HPI and Reports no additional gastrointestinal complaints Genitourinary: Reports no additional female genitourinary complaints Musculoskeletal: Reports no additional musculoskeletal complaints Skin/Breast: Reports system reviewed and no additional complaints, except as docu Psychiatric: Reports no additional psychiatric complaints Endocrine: Reports no additional endocrine complaints Hematologic/Lymphatic: Reports no additional hematologic/lymphatic complaints Allergic/Immunologic: Reports no additional allergic/immunologic complaints Reports system reviewed and no additional complaints, except as documented and Reports Abnormal speech present [facility] Past Medical History Medical History Ruptured cyst of ovary 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 No known health problems Surgical History No history of previous surgery Social History Social History Alcohol intake: current Alcohol intake frequency: holidays/special occasions only Alcohol type: hard liquor Patient Tobacco Use Status: Never used Tobacco Substance Use Type: Marijuana Advance Directives: No Advance Directives Information Provided: Yes Physical Exam ED Vital Signs: Vital Signs - 24 hr 01/02/23 18:20 Temperature 98.3 F Pulse Rate 96 Respiratory Rate 16 Blood Pressure 130/86 Pulse Oximetry 95 Oxygen Delivery Method Room Air BMI result Body Mass Index 16.1 Vital signs have been reviewed and appear to be correct. Blood pressure elevated. Heart rate normal. Respiratory rate normal. Temperature normal. Oxygen saturation normal. Appearance: Alert. Oriented X3. No acute distress. Head: Normal external exam. Normocephalic. Atraumatic. No Garza signs noted. No raccoon eyes noted Eyes: PERRLA. EOMI. Conjunctiva and sclera normal. Eyelids normal. ENT: TM's Normal. Pharynx normal. Uvula midline. Moist mucous membranes. No trismus noted. No drooling noted. No muffled voice noted. Neck: Normal inspection. Neck supple. FROM. No adenopathy. Thyroid Normal. No meningeal signs. No neck mass noted. CVS: Normal heart rate and rhythm. Heart sound normal. No murmurs noted. Pulses normal throughout. Respiratory: No respiratory distress. Painless inspiration. Breath sounds normal. No wheezes/rales/rhonchi noted. Chest nontender. No accessory muscle usage noted or decreased air movement noted. Abdomen: Soft, mild epigastric tenderness, no guarding, no rebound tenderness. Bowel sounds normal in all 4 quadrants. No distention noted. No organomegaly noted. No visible injury noted. Back: No CVA tenderness. Full range of motion noted. Skin: Skin warm and dry. Normal skin color. Normal skin turgor. No rashes/lesions/lacerations noted. Extremities: No lower extremity edema. Extremities exhibit normal range of motion. Extremities nontender. Neuro: Oriented X 3. Cranial nerve exam: II-XII are grossly intact No motor deficit. No sensory deficit. Reflexes normal. Course Course Course Narrative: RME performed by Alana Avelar PA-C. Patient is a 27 year old assigned female at presenting to the emergency department with nausea and vomiting. Labs and swabs ordered. Patient placed back in the waiting room pending room availability and results. Reevaluation(s) Reevaluation #1: Patient received IV fluids/Zofran/Maalox/Pepcid now feels better, able to tolerate p.o. intake patient was instructed to continue with clear diet for 1 days then advance as tolerated. Patient also was advised to try to avoid smoking marijuana. Time: 21:19 Medical Decision Making Differential Diagnosis Differential Diagnoses: The differential diagnosis associated with the presentation includes (Dehydration, electrolyte abnormality, severe anemia, food poisoning, gastritis, gastroenteritis, marijuana induced vomiting, UTI, .) Admission/Observation Consideration of admission/observation: Escalation of care including admission/observation considered Lab Data [facility]DM Lab Attestation statement: I reviewed the patient's lab results. 01/02/23 18:28 01/02/23 18:28 Labs: Lab Results 01/02/23 Range/Units 18:28 WBC 8.5 (4.8-10.8) X10*3/uL RBC 4.01 L (4.20-5.50) X10*6/uL Hgb 13.2 (12.0-16.0) g/dl Hct 37.3 (37.0-47.0) % MCV 93.0 (80.0-98.0) fL MCH 32.9 (27.0-33.0) pg MCHC 35.4 H (31.0-35.0) g/dl RDW 12.0 (11.0-16.0) % Plt Count 240 (160-400) X10*3/uL MPV 10.6 (9.4-12.3) fL Immature Gran % (Auto) 0.4 (0.0-0.4) % Neut % (Auto) 88.6 H (45-73) % Lymph % (Auto) 6.3 L (20-40) % [place] % (Auto) 4.3 (2-11) % Eos % (Auto) 0.0 (0-4) % Baso % (Auto) 0.4 (0-2) % Lymph # (Auto) 0.5 L (1.2-4.9) X10*3/uL [place] # (Auto) 0.4 (0.1-1.2) X10*3/uL Eos # (Auto) 0.0 (0.0-0.4) X10*3/uL Baso # (Auto) 0.0 (0.0-0.2) X10*3/uL Abs Immat Gran (auto) 0.03 (0.00-0.03) X10*3/uL Absolute Neuts (auto) 7.6 (2.0-8.3) x10*3/uL Absolute Nucleated RBC 0.000 (0.0-0.012) X10*3/uL Nucleated RBC % (auto) 0.0 (0.0-0.2) /100WBC Sodium 144 (135-145) mmol/L Potassium 3.8 (3.3-5.1) mmol/L Chloride 110 H (96-108) mmol/L Carbon Dioxide 20 L (22-29) mmol/L Anion Gap 18 (12-20) BUN 36 H (9-16) mg/dL Creatinine 0.88 (0.5-1.4) mg/dL Estim Creat Clear Calc 76.4 Estimated GFR > 60 Random Glucose 106 (60-115) mg/dL Calcium 9.9 (8.4-10.2) mg/dL Magnesium 2.2 (1.6-2.6) mg/dL Total Bilirubin 0.7 (0.0-1.0) mg/dL AST 32 H (5-31) U/L ALT 40 H (0-31) U/L Alkaline Phosphatase 54 (39-117) U/L Total Protein 8.1 H (6.5-8.0) g/dL Albumin 5.1 H (3.5-5.0) g/dL Influenza Type A (PCR) NEGATIVE (Negative) Influenza Type B (PCR) NEGATIVE (Negative) RSV RNA Qual (PCR) NEGATIVE (Negative) SARS-CoV-2 RNA (RT-PCR) NEGATIVE (Negative) Discharge Plan Discharge Clinical Impression: Gastroenteritis, Intractable vomiting Patient Disposition: Home, Self-Care Instructions: Gastroenteritis (ED) Additional Instructions: Try to quit smoking marijuana, drink plenty of fluids to avoid dehydration, start with clear diet then advance as tolerated very Prescriptions: New ondansetron 4 mg tablet,disintegrating 4 mg PO Q6H PRN (Reason: nausea and vomiting) Qty: 7 0RF omeprazole 20 mg capsule,delayed release(DR/EC) 20 mg PO DAILY Qty: 14 0RF No Action ondansetron 4 mg tablet,disintegrating 4 mg PO Q6H PRN (Reason: nausea and vomiting) Qty: 14 0RF loperamide 2 mg capsule 2 mg PO Q4H PRN (Reason: loose stool) Qty: 14 0RF Rx Instructions: administer after each loose stool until symptoms controlled; do not exceed 8 mg per 24 hrs ondansetron 4 mg tablet,disintegrating 4 mg PO Q8H PRN (Reason: nausea and vomiting) Qty: 20 0RF drospirenone-e.estradiol-lm.FA [Beyaz] 3-0.02-0.451 mg (24) (4) tablet 1 tab PO DAILY Stand Alone Forms: Work/School Release
[2023-01-02 21:48] VITALS: BP 121/65; PULSE 69; RESP 12; TEMP 37.4; O2SAT 99
[2023-01-02 23:24] VITALS: BP 111/74; PULSE 75; RESP 17; TEMP 37.3; O2SAT 97
== END 2023-01-02 23:27 | disposition home or self-care (01) ==
PROVIDERS: Emergency Provider Emergency Medicine
DX: K52.9 Noninfective gastroenteritis and colitis, unspecified (principal); R11.2 Nausea with vomiting, unspecified; R10.13 Epigastric pain; R10.31 Right lower quadrant pain; Z20.822 Contact with and (suspected) exposure to COVID-19; Z11.52 Encounter for screening for COVID-19; Z79.899 Other long term (current) drug therapy
CPT/HCPCS: 0241U; 80053; 81001; 81003; 81025; 83735; 85025; 96361; 96374; 96375; 99284; J2405

== ENCOUNTER 2023-01-04 10:54 | Emergency (ER) | payer OTHER, SELFPAY ==
[2023-01-04 11:19] VITALS: BP 141/92; PULSE 65; RESP 18; TEMP 37.1; O2SAT 98; BMI 15.8
--- NOTE | 2023-01-04 11:20 | ED_ITS ---
HPI - General Adult General Chief complaint: Nausea/Vomiting/Diarrhea Stated complaint: Vomiting Time Seen by Provider: 01/04/23 17:24 Source: patient Mode of arrival: ambulatory Limitations: no limitations History of Present Illness HPI narrative: Patient comes to the emergency room complaining of nausea vomiting. Patient states that for 4 days, patient has been complaining of nausea vomiting. Patient was seen here 2 days ago, discharged home feeling better. However, patient states that she was unable to diamond picker her medication. Patient states that she is making herself throw up. Patient states that she has a very uncomfortable sensation every time that she drinks water and she can not help herself and needs to make herself throw up. Patient states that she is well aware that making herself throw up is only worsening the situation. Patient states that she feels very anxious and is requesting to see the care team Related Data Home Medications Medication Instructions Recorded Confirmed jadamefol 3 1 tab PO DAILY 05/19/20 07/17/20 mg-0.02 mg-0.451 mg(24)/0.451 mg(4)tablet (Luís (28)) Previous Rx's Medication Instructions Recorded ondansetron 4 mg disintegrating 4 mg PO Q8H PRN nausea and 01/28/22 tablet vomiting #20 tabs loperamide 2 mg capsule 2 mg PO Q4H PRN loose stool #14 06/16/22 caps ondansetron 4 mg disintegrating 4 mg PO Q6H PRN nausea and 06/16/22 tablet vomiting #14 tabs omeprazole 20 mg capsule,delayed 20 mg PO DAILY #14 caps 01/02/23 release ondansetron 4 mg disintegrating 4 mg PO Q6H PRN nausea and 01/02/23 tablet vomiting #7 tabs prochlorperazine 25 mg rectal 25 mg AL BID PRN nausea and 01/04/23 suppository (Compazine) vomiting #12 ea Allergies Allergy/AdvReac Type Severity Reaction Status Date / Time Penicillins [PENICILLINS] Allergy Mild RASH Verified 01/02/23 18:24 Review of Systems 2 Review of Systems: Constitutional : No Weight loss, No Fever, No Chills, No Night Sweats, No Fatigue, No Malaise ENT/Mouth : No Hearing loss, No Ear Pain, No Nasal Congestion, No Sinus Pain, No Hoarseness, No sore throat, No Rhinorrhea, No Swallowing Difficulty Eyes: No Eye Pain, No Swelling, No Redness, No Foreign Body, No Discharge, No Vision Changes Cardiovascular : No Chest Pain, No SOB, No Dyspnea on Exertion, No Orthopnea, No Edema, No Palpitations Respiratory : No Cough, No Sputum, No Wheezing, No Smoke Exposure, No Dyspnea Gastrointestinal : Complaining of nausea and vomiting,, No Diarrhea, No Constipation, No abdominal Pain, No Hematochezia, No Melena Genitourinary : no irregular bleeding, No Dysuria, No Urinary Frequency, No Hematuria, No Urinary Incontinence, No Urgency, No Flank Pain, No Urinary Flow Changes, No Hesitancy Musculoskeletal : No joint pain, No Myalgias, No Joint Swelling Skin : No Skin Lesions, No rash Neuro : No Weakness, No Numbness, No Paresthesias, No Loss of Consciousness, No Dizziness, No Headache Psych : No Anxiety/Panic, No Depression, No SI/HI/AH/VH, patient states she has a sensation that she can not shake off to make herself throw up Heme/Lymph: No Bruising, No Bleeding,No Lymphadenopathy Endocrine : No Polyuria, No Polydipsia, No Temperature Intolerance PMFSH Past Medical History Medical History Ruptured cyst of ovary 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 No known health problems Surgical History No history of previous surgery Social History Social History Alcohol intake: current Alcohol intake frequency: a few times a month Alcohol type: hard liquor Patient Tobacco Use Status: Never used Tobacco Smoked in Last 30 Days: No Use of substances other than those prescribed or required for medical reasons: Yes Substance Use Type: Marijuana Advance Directives: No Advance Directives Information Provided: No Healthcare Proxy: No Guardian: No Physical Exam ED Vital Signs: Vital Signs - 24 hr 01/04/23 11:19 01/04/23 18:32 Temperature 98.7 F Pulse Rate 65 69 Respiratory Rate 18 14 Blood Pressure 141/92 H 114/73 Pulse Oximetry 98 99 Oxygen Delivery Method Room Air Room Air BMI result Body Mass Index 15.8 Const Other: Appearance: Alert. Oriented X3. No acute distress. Eyes: Pupils equal, round and reactive to light. ENT: Pharynx normal. Neck: Normal inspection. Neck supple. No lymph nodes noted. No crepitus CVS: Normal heart rate and rhythm. Pulses normal. Normal S1 and S2 Respiratory: No respiratory distress. Breath sounds normal. No Wheezing. No rales Abdomen: Soft and nontender. No rigidity. No distention. Skin: Skin warm and dry. Normal skin color. Normal skin turgor. Extremities: No lower extremity edema. No Lacerations. No Rash Neuro: Oriented X 3. No motor deficit. No sensory deficit. Moving all extremities. No slurred speech. CN 2 through 12 grossly intact Psych: calm, cooperative, normal affect Course Course Course Narrative: This is an RME: Additional HPI, ROS, PE not included below will be deferred to primary provider. This is a [id number]-female presenting to the emergency department with a complaint of nausea, vomiting diarrhea x 5 days. Patient was seen here on January 02 after having 2 days of nausea vomiting and diarrhea after eating tacos at work. She states that she was unable to diamond picker the prescriptions at the pharmacy as they were not available. She continues to have nausea, vomiting, diarrhea. She states that she cannot stop drinking water and vomits all water up. She states that she purposely is drinking 2 L of water at a time vomiting and immediately back up. Abdomen is soft, with mild tenderness palpation in the lower abdomen. Plan: Labs, UA, further ER evaluation needed. Medications Administered Discontinued Medications Generic Name Dose Route Start Last Admin Trade Name Zaid PRN Reason Stop Dose Admin Sodium Chloride 1,000 mls @ 999 mls/hr 01/04/23 17:32 01/04/23 19:37 Ns IVCONT 01/04/23 18:32 Infused .Q1H1M ONE Infusion Ondansetron HCl 4 mg 01/04/23 17:32 01/04/23 18:30 Ondansetron Hcl 4 Mg/2 Ml Vial IVPUSH 01/04/23 17:33 4 mg ONCE ONE Administration Medical Decision Making Medical Decision Making [facility] Narrative: -my interpretation of labs: Normal white blood cell count, chemistry unremarkable, hCG negative, LFTs normal. -patient getting IV fluids and Zofran. -per patient's request, patient to be seen by the care team, consult pending. Patient is not on a Section 12, patient denies suicidal or homicidal ideation. -20:25: The care team evaluated the patient, patient does not meet for bulimia. Per care team, it Is possible the patient may have undiagnosed OCD. Plan: Partial hospitalization, patient can be discharged home and she can make phone calls for treatment. Patient agreeable with plan. -[facility], patient has not vomited. Differential Diagnosis Differential Diagnoses: The differential diagnosis associated with the presentation includes (Gastroenteritis, anxiety, bulimia) Admission/Observation Consideration of admission/observation: Escalation of care including admission/observation considered (Patient will remain under observation after being hydrated , waiting to be seen by the care team) Lab Data MDM Lab Attestation statement: I reviewed the patient's lab results. 01/04/23 12:25 01/04/23 12:25 Labs: Lab Results 01/04/23 01/04/23 Range/Units 12:25 18:11 WBC 8.8 (4.8-10.8) X10*3/uL RBC 3.89 L (4.20-5.50) X10*6/uL Hgb 12.8 (12.0-16.0) g/dl Hct 36.2 L (37.0-47.0) % MCV 93.1 (80.0-98.0) fL MCH 32.9 (27.0-33.0) pg MCHC 35.4 H (31.0-35.0) g/dl RDW 11.9 (11.0-16.0) % Plt Count 222 (160-400) X10*3/uL MPV 10.5 (9.4-12.3) fL Immature Gran % (Auto) 0.5 H (0.0-0.4) % Neut % (Auto) 77.3 H (45-73) % Lymph % (Auto) 13.4 L (20-40) % [place] % (Auto) 8.4 (2-11) % Eos % (Auto) 0.1 (0-4) % Baso % (Auto) 0.3 (0-2) % Lymph # (Auto) 1.2 (1.2-4.9) X10*3/uL [place] # (Auto) 0.7 (0.1-1.2) X10*3/uL Eos # (Auto) 0.0 (0.0-0.4) X10*3/uL Baso # (Auto) 0.0 (0.0-0.2) X10*3/uL Abs Immat Gran (auto) 0.04 H (0.00-0.03) X10*3/uL Absolute Neuts (auto) 6.8 (2.0-8.3) x10*3/uL Absolute Nucleated RBC 0.000 (0.0-0.012) X10*3/uL Nucleated RBC % (auto) 0.0 (0.0-0.2) /100WBC Sodium 138 (135-145) mmol/L Potassium 3.7 (3.3-5.1) mmol/L Chloride 104 (96-108) mmol/L Carbon Dioxide 22 (22-29) mmol/L Anion Gap 16 (12-20) BUN 31 H (9-16) mg/dL Creatinine 0.84 (0.5-1.4) mg/dL Estim Creat Clear Calc 78.5 Estimated GFR > 60 Random Glucose 107 (60-115) mg/dL Calcium 9.8 (8.4-10.2) mg/dL Magnesium 2.3 (1.6-2.6) mg/dL Total Bilirubin 1.1 H (0.0-1.0) mg/dL Direct Bilirubin 0.3 (0.0-0.5) mg/dL AST 25 (5-31) U/L ALT 33 H (0-31) U/L Alkaline Phosphatase 46 (39-117) U/L Total Protein 7.9 (6.5-8.0) g/dL Albumin 5.0 (3.5-5.0) g/dL Beta HCG, Quant < 2 mIU/mL Urine Color Dark Yellow Urine Appearance Clear Urine pH 6.0 (5.0-9.0) Ur Specific [place] >= 1.030 H (1.005-1.025) Urine Protein 100 (2+) H (Neg-Trace) mg/dL Urine Glucose (UA) Negative (Negative) mg/dL Urine Ketones 80 (Negative) mg/dL Urine Blood Moderate (2+) H (Negative) Urine Nitrite Negative (Negative) Ur Leukocyte Esterase Trace H (Negative) Urine RBC 6-10 H (0-2) /HPF Urine WBC 0-5 (0-5) /HPF Ur Squamous Epith Cells 3-5 (0-2) /HPF Urine Bacteria 1+ (None Seen) Hyaline Casts 3-5 (0-2) /LPF Urine Opiates Screen Not Detected (Not Detect) Urine Fentanyl Screen Not Detected (Not Detect) Ur Barbiturates Screen Not Detected (Not Detect) Ur Phencyclidine Scrn Not Detected (Not Detect) Ur Amphetamines Screen Not Detected (Not Detect) U Benzodiazepines Scrn Not Detected (Not Detect) Urine Cocaine Screen Not Detected (Not Detect) U Marijuana (THC) Screen POSITIVE H (Not Detect) Ethyl Alcohol < 10 mg/dL Critical Care Time Critical Care Time Critical Care Time: Yes Total Critical Care Time: 60 Attestation: I have personally provided critical care time. Time includes review of lab data, radiology results, discussion with consultants, and monitoring for potential decompensation. Intervention performed as documented. Discharge Plan Discharge Clinical Impression: Vomiting, Anxiety Patient Disposition: Home, Self-Care Instructions: Acute Nausea and Vomiting (ED) Additional Instructions: Please follow-up with your primary care physician tomorrow. If you have any worsening or new symptoms, please return to the emergency room or call 911 Prescriptions: New prochlorperazine [Compazine] 25 mg suppository 25 mg AL BID PRN (Reason: nausea and vomiting) Qty: 12 0RF No Action ondansetron 4 mg tablet,disintegrating 4 mg PO Q6H PRN (Reason: nausea and vomiting) Qty: 14 0RF loperamide 2 mg capsule 2 mg PO Q4H PRN (Reason: loose stool) Qty: 14 0RF Rx Instructions: administer after each loose stool until symptoms controlled; do not exceed 8 mg per 24 hrs ondansetron 4 mg tablet,disintegrating 4 mg PO Q8H PRN (Reason: nausea and vomiting) Qty: 20 0RF ondansetron 4 mg tablet,disintegrating 4 mg PO Q6H PRN (Reason: nausea and vomiting) Qty: 7 0RF omeprazole 20 mg capsule,delayed release(DR/EC) 20 mg PO DAILY Qty: 14 0RF drospirenone-e.estradiol-lm.FA [Beyaz] 3-0.02-0.451 mg (24) (4) tablet 1 tab PO DAILY
[2023-01-04 12:53] LABS: Alanine Aminotransferase 33 U/L (0-31); Alkaline Phosphatase 46 U/L (39-117); Anion Gap 16 (12-20); Aspartate Amino Transferase 25 U/L (5-31); Bilirubin Direct 0.3 mg/dL (0.0-0.5); Bilirubin Total 1.1 mg/dL (0.0-1.0); Blood Urea Nitrogen 31 mg/dL (9-16); Calcium 9.8 mg/dL (8.4-10.2); Carbon Dioxide 22 mmol/L (22-29); Chloride 104 mmol/L (96-108); Creatinine Clr Calc Pharmacy 78.5; Estimated Glomerular Filt Rate > 60; Glucose Random 107 mg/dL (60-115); HCG Quantitative < 2 mIU/mL; Magnesium 2.3 mg/dL (1.6-2.6); Potassium 3.7 mmol/L (3.3-5.1); Sodium 138 mmol/L (135-145); Total Protein 7.9 g/dL (6.5-8.0)
[2023-01-04 18:19] LABS: Appearance Urine Clear; Color Urine Dark Yellow; Glucose Urine UA Negative (Negative); Leukocyte Esterase Urine Trace (Negative); Nitrite Urine Negative (Negative); Specific Gravity - Urine >= 1.030 (1.005-1.025); UMIC TRIGGER UACC YES; Urine Blood Moderate (2+) (Negative); Urine Ketones 80 mg/dL (Negative); Urine Protein 100 (2+) mg/dL (Neg-Trace)
[2023-01-04 18:22] LABS: Bacteria Urine 1+ (None Seen); WBC Urine 0-5 /HPF (0-5)
[2023-01-04 18:26] LABS: Amphetamine Screen Urine Not Detected (Not Detect); Barbiturates, Urine Not Detected (Not Detect); Benzodiazepines Screen Urine Not Detected (Not Detect); Cannabinoid Screen Urine POSITIVE (Not Detect); Cocaine Screen Urine Not Detected (Not Detect); Fentanyl, urine Not Detected (Not Detect); Opiate Screen Urine Not Detected (Not Detect); Phencyclidine Screen Urine Not Detected (Not Detect)
[2023-01-04] MEDS: 0.9 % Sodium Chloride 1,000 ML 999 ML IVCONT (18:29)
[2023-01-04] MEDS: ondansetron HCL 4 MG/2 ML VIAL IVPUSH (18:30)
[2023-01-04 18:32] VITALS: BP 114/73; PULSE 69; RESP 14; O2SAT 99
[2023-01-04 18:37] LABS: Ethanol < 10 mg/dL
--- NOTE | 2023-01-04 18:50 | PC.NURSE ---
pt a&ox4, vss, reporting nausea/vomiting/abd pain, unable to tolerate PO intake, pt reported to provider that she has been making herself vomit and not eating - requesting CARE team consult. 20G IV placed right forearm, 1L NS running, medicated per MAR.
--- NOTE | 2023-01-04 20:25 | PC.NURSE ---
Pt resting comfortably in [facility]. no nausea or vomiting at this time.
--- NOTE | 2023-01-05 09:14 | MHC.CARE ---
The Rad Team made a referral to [facility]. The completed referral form and Care Assessment were faxed to [facility] @ [phone]. T/w will document for a follow up call to be made on 02/06/23.
== END 2023-01-04 20:57 | disposition home or self-care (01) ==
PROVIDERS: Physician Assistant Medical; Emergency Provider Emergency Medicine
DX: R11.2 Nausea with vomiting, unspecified (principal); F41.1 Generalized anxiety disorder; F43.0 Acute stress reaction; Z79.899 Other long term (current) drug therapy
CPT/HCPCS: 36415; 80048; 80076; 80307; 81001; 83735; 84702; 85025; 96361; 96374; 99284; J2405; S9485

== ENCOUNTER 2023-10-04 13:28 | Outpatient (REF) | payer OTHER, SELFPAY ==
[2023-10-04 14:55] LABS: TSH reflex Free T4 1.88 uIU/mL (0.32-4.0)
== END 2023-10-04 13:29 | disposition home or self-care (01) ==
LOC: HO.CHCLDS 13:28
PROVIDERS: Visit Provider Internal Medicine
DX: E03.8 Other specified hypothyroidism (principal)
CPT/HCPCS: 36415; 84443

== ENCOUNTER 2024-06-06 17:42 | Outpatient (REF) | payer OTHER, SELFPAY ==
--- OUTSIDE RECORDS SUMMARY | 2024-06-06 19:31 | XMS_ITS | Encounter Summary ---
Author Organization [employer] Address [address] [place] [address] Care Team Providers Care Molding Fitter Name Role Phone Matheus Lewis MD Primary Care Prov ider Reason for Visit * Reason Comments Gynecologic Exam Encounter Details Date Type Department Care Team (Latest Contact Info) Description 06/06/2024 10:30 AM EDT Procedure Visit [facility] [address] [place] [address] Franchesca Keyes, CN [address] [place] [address] Cervical cancer screening (Primary Dx); IAN III with severe dysplasia; Checking subdermal contraceptive; Screening examination for venereal disease Social History Tobacco Use Types Packs/Day Years Used Date Smoking Tobacco: Never Smokeless Tobacco: Never Tobacco Cessation:Counseling Given: Not Answered Alcohol Use Standard Drinks/Week Comments Yes 3 (1 standard drink = 0.6 oz pur e alcohol) Depression Answer Date Recorded Patient Health Questionnaire-9 Score 0 08/05/2022 Housing Stability Answer Date Recorded What is your housing situation today? I have patriziajarod baxter 01/17/[address] you li ve. Do you have problems with any of the following? None of the above 01/17/2023 Food Insecurity Answer Date Recorded Within the past 12 months, y ou worried that your food would run out before you got money to buy more: Never True 01/17/2023 Within the past 12 months,th e food you bought just didn't last and you didn't have enough money to get more: Never True Transportation Answer Date Recorded In the past 12 months, has l ack of transportation kept you from medical appts, meetings, work or from getting things needed for daily living? No 01/17/2023 Utilities Answer Date Recorded In the past 12 months, has t he electric, gas, oil or water company threatened to shut off services in your home? No 01/17/2023 Depression Answer Date Recorded Patient Health Questionnaire-2 Score 0 08/05/2022 Comments No Sex and Gender Information Value Date Recorded Sex Assigned at Female 01/24/2022 10:21 AM EDT Legal Sex Female 10:21 AM EDT Gender Identity Female 01/24/2022 10:21 AM EDT Sexual Orientation Straight 01/24/2022 10 :21 AM EDT documented as of this encounter Last Filed Vital Signs Vital Sign Reading Time Taken Comments Blood Pressure 111/68 06/06/2024 10:38 AM EDT Pulse 71 06/06/2024 10:38 AM EDT Temperature 36.9 ??C (98.4 ??F) 06/06/2024 1 0:38 AM EDT Respiratory Rate 16 06/06/2024 10:3 8 AM EDT Oxygen Saturation 99% 06/06/2024 10: 38 AM EDT Inhaled Oxygen Concentration - - Weight 54.3 kg (119 lb 12.8 oz) 025 10:38 AM EDT Height 177.8 cm (5' 10 ) 06/06/2024 10: 38 AM EDT Body Mass Index 17.19 06/06/2024 10:38 AM EDT documented in this encounter Progress Notes * Franchesca Keyes CNM - 06/06/2024 10:30 AM EDT Subjective Patient ID: Janel Ames is a 28 y.o. female who presents for [employer]NER visit Nexplanon inserted 06/2020. Happy with implant, not planning in the next year. IAN 3, LEEPin 2020. Due for cotesting. Found LEEP traumatic, has been nervous to come for care. 1 intermediate AMAB partner, no safety concerns. Rarely sexually active, in part due to experience from LEEP. Gonorrhea/Chlamydia/trichomonas negative in 2020. History of ovarian cyst a few years ago. Noted some cramping months ago, no current cramping. Frequent bleeding initially with Nexplanon, now monthly menses. Patient seen in conjunction with NANCY Garrett student. I was present for and confirmed all pertinent elements in the history, exam, assessment of the patient, and the plan of care, and agree with all findings. Review of Systems Genitourinary: Negative for dyspareunia, dysuria, frequency, genital sores, hematuria, menstrual problem, pelvic pain, urgency, vaginal bleeding, vaginal discharge and vaginal pain. No abnormal bleeding, no breast pain, no breast mass, no nipple discharge Objective BP 111/68 (BP Location: Left arm, Patient Position: Sitting, BP Cuff Size: Adult) Pulse 71 Temp98.4 ??F (36.9 ??C) (Oral) Resp 16 Ht 5' 10 (1.778 m) Wt 119 lb 12.8 oz (54.3 kg) SpO2 99% BMI 17.19 kg/m?? Physical Exam Exam conducted with a nuclear licensing engineer present (Franchesca Keyes CNM). Constitutional: Appearance: Normal appearance. Chest: Breasts: Right: Normal. No swelling, bleeding, inverted nipple, mass, nipple discharge, skin change or tenderness. Left: Normal. No swelling, bleeding, inverted nipple, mass, nipple discharge, skin change or tenderness. Genitourinary: General: Normal vulva. Labia: Right: No rash, tenderness, lesion or injury. Left: No rash, tenderness, lesion or injury. Vagina: Normal. No signs of injury and foreign body. No vaginal discharge, erythema, tenderness, bleeding or lesions. Cervix: No cervical motion tenderness, discharge, friability, lesion, erythema, cervical bleeding or eversion. Uterus: Normal. Not enlarged and not tender. Adnexa: Right adnexa normal and left adnexa normal. Right: No mass, tenderness or fullness. Left: No mass, tenderness or fullness. Lymphadenopathy: Upper Body: Right upper body: No supraclavicular or axillary adenopathy. Left upper body: No supraclavicular or axillary adenopathy. Skin: Comments: Nexplanon palpable in left arm Neurological: Mental Status: She is alert. Psychiatric: Mood and Affect: Mood normal. Behavior: Behavior normal. Assessment/Plan Diagnoses and all orders for this visit: Cervical cancer screening - Pap Smear Cotest 1 year if normal/HPV negative. Will contact with results. IAN III with severe dysplasia - Pap Smear Cotest 1 year if normal/HPV negative. Will contact with results. Reviewed experience with LEEP and impact on sex. Partner supportive. Discussed EMDR as helpful tool. Let me know if interested. Checking subdermal contraceptive Reviewed normal side effects and danger signs. Expect irregular bleeding, or less likely, no bleeding at all. Report if implant not palpable. Report prolonged, frequent or heavy bleeding. Remove/replace Nexplanon by 5y from insertion date, or any time before then. Screening examination for venereal disease - STI testing add on (NG, CT, Trich) documented in this encounter Plan of Treatment Scheduled Orders Name Type Priority Associated Diagnoses Orde r Schedule Pap Smear Pathology and Cytology Routine Cervical cancer screening IAN III with severe dysplasia Ordered: 06/06/2024 STI testing add on (NG, CT, Trich) Pathology and Cytology Routine Screening examination for venereal disease Ordered: 06/06/2024 documented as of this encounter Visit Diagnoses Diagnosis Cervical cancer screening- Primary Screening for malignant neoplasm of the cervix IAN III with severe dysplasia Carcinoma in situ of cervix uteri Checking subdermal contraceptive Surveillance of previously prescribed implantable subdermal contraceptive Screening examination for venereal disease documented in this encounter Additional Health Concerns Assessment Noted Time PHQ-9 Depression Total Score: 0 08/06/19 23 10:26 AM EDT documented as of this encounter Care Teams Molding Fitter Relationship Specialty Start Date End Date Matheus Lewis MD [address] [place] [id number] PCP - General Internal Medicine 04/10/20 documented as of this encounter
--- OUTSIDE RECORDS SUMMARY | 2024-06-06 19:31 | XMS_ITS | Clinical Summary ---
Author Organization [employer] Address [address] [place] [address] Care Team Providers Care Case Work Aide Name Role Phone Matheus Lewis MD Primary Care Prov ider Allergies Active Allergy Reactions Criticality Noted Date Comments Penicillin G 04/03/2012 Penicillins 04/18/2022 Medications * This document contains information received from the source organization and may not represent a complete record from that organization. etonogestrel-eluti ng 68 mg contraceptive implant 1 each by Implant route 1 (one) time. Active Active Problems Problem Noted Date Diagnosed Date Mood disorder 04/20/2023 Assessment & Plan (04/20/2023 10:49 AM EST): She was being folllowed at [facility], wants to change, will refer to Subclinical hypothyroidism 04/20/2023 Assessment & Plan (04/20/2023 10:50 AM EST): Will order a new tsh for guidance of therapy Recurrent vomiting 08/05/2022 Assessment & Plan (04/20/2023 10:48 AM EST): Patient had a new episode of vomiting on December where she had to visit er, since no further episodes Assessment & Plan (08/05/2022 10:44 AM EDT): Symptoms resolved, she has cut down on smoking marijuana, and is eating less fast/fried food, she gained some weight after her last visit, told to get blood work done, will call with results Encounters Date Type Department Care Team Description 06/06/2024 10:30 AM EDT Procedure Visit [facility] [address] [place] [address] Franchesca Keyes CNM Cervical cancer screening (Primary Dx); IAN III with severe dysplasia; Checking subdermal contraceptive; Screening examination for venereal disease 06/06/2024 Travel 03/28/2024 Telephone [facility] [address] [place] [address] Matheus Lewis MD from Last 3 Months Immunizations Name Administration Dates Next Due DTaP 07/29/1998, 6,1994,11/03,1994 HPV, Quadrivalent 06/10/2011,03/25/2010,12/29/19 10 Hep A, ped/adol, 2 dose 06/15/2012,12/28/2009 Hep B, Adolescent or Pediatric 03/07/1995,1994,1994 Hep B, adult 05/24/2016,04/15/2016 Hib (HbOC) 10/02/1995, 5,1994,08/25 IPV 07/29/1998, 5,1994,08/25 Influenza injectable quadriv alent preservative free 04/15/2020 MMR 08/02/1999,10/02/1995 Meningococcal MCV4P ACYW-135 06/15/2012 Meningococcal MPSV4 12/28/2009 Tdap 06/04/2009 Varicella 06/04/2009,06/29/1995 Family History Medical History Relation Name Comments COPD Father Alphonso Ames Diabetes Father Alphonso Ames Hypertension Father Alphonso Ames Relation Name Status Comments Father Alphonso Ames Social History Tobacco Use Types Packs/Day Years Used Date Smoking Tobacco: Never Smokeless Tobacco: Never Tobacco Cessation:Counseling Given: Not Answered Alcohol Use Standard Drinks/Week Comments Yes 3 (1 standard drink = 0.6 oz pur e alcohol) Depression Answer Date Recorded Patient Health Questionnaire-9 Score 0 08/05/2022 Housing Stability Answer Date Recorded What is your housing situation today? I have patrizia baxter 01/17/[address] you [...] Orientation Straight 01/24/2022 10 :21 AM EDT Last Filed Vital Signs Vital Sign Reading [...] Mass Index 17.19 06/06/2024 10:38 AM EDT Plan of Treatment Health Maintenance Due Date Last Done Comments Alcohol/Substance Use Screening 2006 DTaP/Tdap/Td Vaccines (7 - Td or Tdap) 06/05/2019 06/04/2009, 07/29/1998, 01/01/1996, Additional history exists Pap Smear 02/10/2022 04/28/2020, 04/28/2020 Depression Screening 08/06/2023 08/05/2022, 08/06/19 23 SDOH Screening 08/06/2023 08/05/2022 COVID-19 Vaccine ( season) 2023 Influenza Vaccine (#1) 2023 04/15/2020 Family Planning (PISQ) 06/06/2025 06/06/2024 Tobacco Screening 06/06/2025 06/06/2024 Zoster Vaccines (1 of 2) 2044 RSV Patients and Patients Aged 60 years or older (1 - 1-dose 75+ series) 2069 HIB Vaccines Completed 10/02/1995, 07/1994, 1994, Additional history exists IPV Vaccines Completed 07/29/1998, 07/1994, 1994, Additional history exists HPV Vaccines Completed 06/10/2011, 02/26, 12/28/2009 Hepatitis A Vaccines Completed 06/15/2012, 12/29/19 10 Meningococcal Vaccine Completed 06/15/2012, 010 Hepatitis B Vaccines Completed 05/24/2016, 04/15/2016, 03/07/1995, Additional history exists HIV Screening Completed 08/05/2022, 04/10/2020 Hepatitis C Screening Completed 08/05/2022, 021 Pneumococcal Vaccine: Pediatrics (0 to 5 Years) and At-Risk Patients (6 to 49) Years) Aged Out No longer eligible based on patient's age to complete this topic RSV under 20 months Aged Out No longe r eligible based on patient's age to complete this topic Rotavirus Vaccines Aged Out No longer eligible based on patient's age to complete this topic Procedures Procedure Name Priority Date/Time Associated Diagnosis Comments HEPATITIS C AB W/REFL TO HCV RNA, QN, PCR Routine 08/05/2022 10:41 AM EDT Recurrent vomiting HIV 1 RNA, QN PCR W/RFL LYNSEY (RTI,PI,INTEGRASE) Routine 08/05/2022 10:41 AM EDT Recurrent vomiting THINPREP PAP Routine 04/28/2020 10:35 AM EST from Last 3 Months or Most Recently Relevant to Health Maintenance Results * HIV-1 RNA, Quantitative, Real-Time PCR with Reflex to Genotype (RTI, PI, Integrase) (08/05/2022 10:41 AM EDT) HIV 1 RNA, QN PCR NOT DETECTED copies/mL [facility], HIV 1 RNA, QN PCR NOT DETECTED Log copies/mL [facility], Comment: REFERENCE RANGE: NOT DETECTED copies/mL ?NOT DETECTED ??Log copies/mL This test was performed using Real-Time Polymerase Chain Reaction. Reportable range is 20 to 10,000,000 copies/mL (1.30-7.00 Log copies/mL). 08/05/2022 10:4 1 AM EDT 08/05/2022 10:42 AM EDT Narrative [facility] - 08/09/2022 11:39 PM EDT FASTING:NO FASTING: NO Matheus Murillo MD LAB BLOOD ORDERABL ES Final Result [facility] [address], [place] [address] [employer], [address] [place] [address] * Hepatitis C Antibody with Reflex to HCV, RNA, Quantitative, Real-Time PCR (08/05/2022 10:41 AM EDT) Hepatitis C Antibody NON-REACT DAY NON-REACT DAY [employer] [place] Index 0.04 <1.00 [employer] Comment: HCV antibody was non-reactive. There is no laboratory evidence of HCV infection. In most cases, no further action is required. However, if recent HCV exposure is suspected, a test for HCV RNA (test code 71722) is suggested. For additional information please refer to http://education.[employer].CinemaNow/faq/HPN22s5 (This link is being provided for informational/ educational purposes only.) Blood Venous blood specimen / Unknown 08/05/2022 10:41 AM EDT 08/05/2022 10:42 AM EDT Narrative [facility] - 08/09/2022 11:39 PM EDT FASTING:NO FASTING: NO Matheus Murillo MD LAB BLOOD ORDERABL ES Final Result [facility] [address] [place] [address], [place] [address] [employer] [facility] [employer] [address] [place] [phone] * (ABNORMAL) THINPREP PAP (04/28/2020 10:35 AM EST) Clinical Information: None given [facility] COMMENT SEE COMMENT [facility] Comment: EXPLANATORY NOTE: ? The Pap is a screening test for cervical cancer. It is ?? not a diagnostic test and is subject to false negative ?? and false positive results. It is most reliable when a ?? satisfactory sample, regularly obtained, is submitted ?? with relevant clinical findings and history, and when ?? the Pap result is evaluated along with historic and ?? current clinical information. ?? Forest Fire Control Officer : SEE COMMENT [facility] Comment: HJP, CT(ASCP) CT screening location: [address] ??[id number] General Categorization: EPITHELIAL CELL ABNORMALITY(A) [facility] Interpretation/R esult: Low Grade Squamous Intraepithelial Lesion (LSIL)(A) [facility] LMP: NONE [facility]IVEN [facility] PATHOLOGIST: SEE COMMENT [facility] Comment: Michelle Pascual M.D. Direct , Board Certified in Anatomic and Clinical Pathology and Cytopathology (electronic signature) Consulting Pathologist [facility] [address] [place] [address] Prev. BX: NONE [facility]IVEN [facility] Prev. PAP: NONE [facility]IVEN [facility] SOURCE: None given [facility] Statement Of Adequacy: SEE COMMENT [facility] Comment: Satisfactory for evaluation. Endocervical/transformation zone component present. Age and/or menstrual status not provided 04/28/2020 10:3 5 AM EST us Franchesca Keyes CN LAB PATHOLOGY ORDERABLES Final Result [facility] [address] from Last 3 Months or Most Recently Relevant to Health Maintenance [facility] Care Teams Case Work Aide Relationship Specialty Start Date End Date Matheus Lewis MD [address] [place] [address] PCP - General Internal Medicine 04/10/20
--- OUTSIDE RECORDS SUMMARY | 2024-06-06 19:31 | XMS_ITS | Encounter Summary ---
Author Organization [employer] Address [address] [place] [address] Care Team Providers Care Project Geophysicist Name Role Phone Matheus Lewis MD Primary Care Prov ider Encounter Details Date Type Department Care Team (Latest Contact Info) Description 06/06/2024 Travel Social History Tobacco Use Types Packs/Day Years Used Date Smoking Tobacco: Never Smokeless Tobacco: Never Alcohol Use Standard Drinks/Week Comments Yes 3 (1 standard drink = 0.6 oz pur e alcohol) Depression Answer Date Recorded Patient Health Questionnaire-9 Score 0 08/05/2022 Housing Stability Answer Date Recorded What is your housing situation today? I have patrizia vee 01/17/[address] you li [...] AM EDT documented as of this encounter Plan of Treatment Not on file documented as of this encounter Visit Diagnoses Not on filedocumented in this encounter Additional Health Concerns Assessment Noted Time PHQ-9 Depression Total Score: 0 08/06/19 23 10:26 AM EDT documented as of this encounter Care Teams Project Geophysicist Relationship Specialty Start Date End Date Matheus Lewis MD [address] [place] [id number] PCP - General Internal Medicine 04/10/20 documented as of this encounter
[2024-06-14 09:37] LABS: HPV Genotype 16 Negative (Negative); HPV Genotype 18 Negative (Negative); HPV High Risk Negative (Negative)
== END 2024-06-06 17:43 | disposition home or self-care (01) ==
LOC: HO.CHCLNP 17:42
PROVIDERS: Visit Provider Advanced Practice Midwife
DX: D06.9 Carcinoma in situ of cervix, unspecified (principal); Z12.4 Encounter for screening for malignant neoplasm of cervix
CPT/HCPCS: 87626; 88175